=== PATIENT | female | born 1935 | race Caucasian/White ===

== ENCOUNTER 2023-02-01 13:20 | Inpatient (IN) ==
--- NOTE | 2023-02-01 13:56 | ED Triage Note ---
Date of Service February 01, 2023 History of Present Illness This patient was briefly evaluated while in triage. An abbreviated physical exam was performed. This patient is a 87-year-old Female who presents to the ED for evaluation of. She was recently on antibiotics for a UTI and developed a yeast infection according to urgent care. She was given antifungals and the rash has worsened significantly. Physical Exam VITALS: Vitals are noted on the nurse's note and reviewed by myself. GENERAL: This is an 87-year-old female, sitting in a wheelchair. SKIN: There is an erythematous, maculopapular rash to bilateral hands and forearms. NEURO: Patient was alert and oriented to person place and time. Initial orders for labs and / or imaging were placed and patient was placed in the waiting area until a bed is available. Please see further documentation for the full ED course. MDM / Impression Impression Impression: Candidiasis, disseminated, KEV (acute kidney injury)
[2023-02-01 14:40] LABS: Basophils # (auto) 0.02 K/uL (0.00-0.20); Basophils % (auto) 0.1 %; Eosinophils # (auto) 1.09 K/uL (0.00-0.50); Eosinophils % (auto) 7.2 %; Hematocrit (blood only) 43.9 % (37.0-47.0); Hemoglobin 14.6 g/dl (12.0-16.0); Immature Granulocytes # (auto) 0.07 K/uL (0.01-0.20); Immature Granulocytes % (auto) 0.5 %; Lymphocytes # (auto) 1.35 K/uL (1.20-3.40); Lymphocytes % (auto) 8.9 %; Mean Corpuscular Hemoglobin 31.2 pg (25.0-34.0); Mean Corpuscular Hgb Conc 33.3 g/dL (32.0-36.0); Mean Corpuscular Volume 93.8 fL (80.0-100.0); Mean Platelet Volume 8.9 fL (9.4-12.4); Monocytes # (auto) 0.53 K/uL (0.11-0.59); Monocytes % (auto) 3.5 %; Neutrophils # (auto) 12.15 K/uL (1.40-6.50); Neutrophils % (auto) 79.8 %; Platelet Count 258 K/uL (130-400); RDW Coefficient of Variation 13.2 % (11.5-14.5); RDW Standard Deviation 45.2 fL (36.4-46.3); Red Blood Count 4.68 M/uL (4.20-5.40); White Blood Count 15.21 K/ul (4.8-10.8)
[2023-02-01 14:57] LABS: Alanine Aminotransferase 8 U/L (7-52); Albumin Globulin Ratio 1.5 (0.9-2); Albumin Level 4.4 gm/dl (3.4-5.0); Alkaline Phosphatase 95 U/L (34-104); Anion Gap 8 (3-11); Aspartate Aminotransferase 9 U/L (13-39); BUN Creatinine Ratio 28.4 (10-20); Bilirubin,Total 0.4 mg/dl (0.2-1.0); Blood Urea Nitrogen 38 mg/dl (6-23); Calcium 9.8 mg/dl (8.6-10.3); Carbon Dioxide 24 mmol/L (21-32); Chloride 110 mmol/L (98-107); Est GFR (African American) 41.8 ml/min; Glucose 98 mg/dl (70-99(Fasting)); Potassium 4.2 mmol/L (3.5-5.1); Sodium 142 mmol/L (136-145); Total Protein 7.4 gm/dl (6.0-8.3)
--- NOTE | 2023-02-01 16:03 | XRay Report ---
SINGLE VIEW CHEST CLINICAL HISTORY: Dyspnea. FINDINGS: An AP, portable, upright chest radiograph is obtained. No prior studies are available for c omparison at the time of dictation. The cardiomediastinal silhouette is top normal for projection. Th e lungs and pleural spaces are clear. No pneumothorax is seen. The skeletal structures are osteopenic . There is chronic posttraumatic deformity of the distal right clavicle. IMPRESSION: No active disease in the chest. ACT 112: Negative or not required by law. Electronically signed by: Darion Menard M.D. 02/01/2023 4:02 PM
[2023-02-01 16:15] LABS: Appearance Urine Cloudy (Clear); Bacteria Urine Automated Negative (Negative); Bilirubin Urine Negative (Negative); Blood Urine Negative (Negative); Color Urine Dark Yellow; Epithelial Cell Urine Auto >30 /lpf (0-5); Glucose Urine UA Negative (Negative); Ketones Urine Trace (Negative); Leukocyte Esterase Urine Trace (Negative); Nitrite Urine Negative (Negative); Protein Urine Negative (Negative); Specific Gravity Urine 1.035 (1.000-1.030); Urobilinogen Urine Negative (Negative)
[2023-02-01 16:38] LABS: RBC Urine Automated 0-4 /hpf (0-4)
[2023-02-01] MEDS ORDERED: diphenhydrAMINE 50 MG/ML VIAL IV STA (17:31)
[2023-02-01] MEDS ORDERED: TRIAMCIN EXT STA (17:33)
[2023-02-01] MEDS ORDERED: NYSTATIN EXT STA (17:33)
--- NOTE | 2023-02-01 18:15 | Emergency Department Note ---
Impression & Plan Candidiasis, disseminated, KEV (acute kidney injury) ED Provider Note HISTORY OF PRESENT ILLNESS: Patient is an 87-year-old female presenting with a diffuse rash. Patient was diagnosed with urinary tract infection 10 days ago and started on Macrobid. She completed her course of antibiotic, but states that a few days ago she started having erythema and itchiness in her vaginal and vulvar region. Her primary care provider diagnosed her with a yeast infection and started her on nystatin cream without any relief. Her rash has spread to the entirety of her vulva and gluteal fold region. She also has erythematous satellite lesions on her bilateral forearms and in her abdominal crease. She reports the entirety of her body is very itchy. She has been using the nystatin cream without any relief in symptoms. Denies any fevers. Denies any chest pain or shortness of breath. Denies any abdominal pain. Other than Macrobid she has not had any medication changes. Denies being immunocompromise. ROS: as above PHYSICAL EXAM: Constitutional: Patient appears in no acute distress. HENT: Head: Normocephalic and atraumatic. Eyes: EOMI, PERRL Mouth/Throat: Mucous membranes moist. Neck: Trachea midline. Neck supple. Cardiovascular: RRR, No murmurs, rubs or gallops. Intact distal pulses. Pulmonary/Chest: No respiratory distress. Breath sounds clear and equal bilaterally. No wheezes or rales. Abdominal: Abdomen soft, no tenderness, rebound or guarding. Musculoskeletal: No edema, tenderness or deformity noted. Skin: Warm and dry. Patient has diffuse erythema with satellite lesions in her vaginal and vulvar region, gluteal crease and in her inguinal folds. She also has lesions across her abdominal fold. Nikolsky negative. Psychiatric: Appropriate mood and affect for situation. Neurological: Alert and keenly responsive. CN II-XII grossly intact, moving all extremities equally and fully. MDM: - Vitals signs stable. - History obtained via patient. Patient presents with diffuse rash. Patient was started on Macrobid for a UTI 10 days ago. She reports she completed her course of antibiotics but over the last few days has developed erythema and itchiness of her perineal region. She has also developed a rash on her bilateral forearms and abdominal folds. Denies any fevers. Reports the rash is very itchy. - Chronic conditions affecting care: Parkinson's disease - Differential diagnoses include, but are not limited to: Nicholas Ricardo syndrome; cellulitis; toxic shock syndrome; Keron dermatitis - Order placed for continuous cardiac monitoring. At this time, monitor showed rate of 90 bpm with normal sinus rhythm, per my interpretation. - External medical records reviewed. - Laboratory workup interpreted by myself showed leukocytosis (WBC 15.21) with left shift; stable electrolytes; KEV (Cr 1.34) - CXR negative for pneumonia, per my interpretation - UA negative for infection - Patient's keron is diffuse throughout her perineal region and abdominal folds. Nystatin powder applied. Given 50 mg IV Benadryl for itchiness. Given 1L NS in ER for hydration. - Discussion was had with social media strategist about patient's case and need for admission - Hospitalist consulted for admission - [facility] ASSESSMENT AND PLAN: Diagnosis: Candidiasis dermatitis; KEV Plan: Admit Past Med/Surg History Medical History No pertinent family history Parkinson disease Surgical History No pertinent past surgical history Social History Smoking Status: Never smoker Preferred Language: Kittitian Feels Safe at Home: Yes Allergies Allergies Allergy/AdvReac Type Severity Reaction Status Date / Time No Known Allergies Allergy Unverified 02/01/23 17:43 Home Meds Home Medications Medication Instructions Recorded Confirmed Ultimate Bone Support 1 tab PO QAM 02/01/23 02/01/23 acetaminophen 500 mg tablet 1,000 mg PO Q12H 02/01/23 02/01/23 amantadine HCl 100 mg capsule 100 mg PO BID 02/01/23 02/01/23 artificial tears solution eye drops 1 drp ophthalmic (eye) TID 02/01/23 02/01/23 carbidopa 25 mg-levodopa 100 mg 2 tab PO TID 02/01/23 02/01/23 tablet carbidopa ER 25 mg-levodopa 100 mg 1 tab PO HS 02/01/23 02/01/23 tablet,extended release celecoxib 200 mg capsule 200 mg PO QAM 02/01/23 02/01/23 cholecalciferol (vitamin D3) 25 50 mcg PO QAM 02/01/23 02/01/23 mcg (1,000 unit) capsule (Vitamin D3) clotrimazole 1 % topical cream 1 applic topical DAILY PRN Itching 02/01/23 02/01/23 cranberry concentrate-ascorbic 1 cap PO QAM 02/01/23 02/01/23 acid 140 mg-100 mg capsule (Cranberry Plus Vitamin C) diclofenac sodium 1 % topical gel 2 g topical QID PRN Moderate Pain 02/01/23 02/01/23 (Scale Score 5-6) fluconazole 150 mg tablet 150 mg PO Q72H 02/01/23 02/01/23 fluticasone propionate 50 2 spray intranasal HS 02/01/23 02/01/23 mcg/actuation nasal spray,suspension levothyroxine 75 mcg tablet 75 mcg PO QAM 02/01/23 02/01/23 neomycin-bacitracn Zn-polymyx 3.5 See Rx Instructions .Route .COMPLEX 02/01/23 02/01/23 mg-400 unit-5,000 unit/gram top oint (Neosporin ([id number])) nitrofurantoin 100 mg PO BID 02/01/23 02/01/23 monohydrate/macrocrystals 100 mg capsule nystatin-triamcinolone topical 1 applic topical TID 02/01/23 02/01/23 cream phenazopyridine 100 mg tablet 100 mg PO Q8H PRN Burning with 02/01/23 02/01/23 urination polyethylene glycol 3350 17 15 g PO DAILY 02/01/23 02/01/23 gram/dose oral powder sulfacetamide sodium 10 % eye drops 1 drp ophthalmic (eye) HS 02/01/23 02/01/23 trazodone 50 mg tablet 75 mg PO HS 02/01/23 02/01/23 vibegron 75 mg tablet (Gemtesa) 75 mg PO HS 02/01/23 02/01/23 Results & Data (ED) Vital Signs Vital Signs - 24 hr 02/01/23 13:52 02/01/23 17:15 02/01/23 17:31 Temperature 36.2 C L Temperature Source Temporal Artery Scan Pulse Rate 90 Respiratory Rate 18 Respiratory Effort / Characteristics Non-Labored Spontaneous Spontaneous Respiratory Depth Normal Deep Respiratory Pattern Regular Regular Blood Pressure 140/59 L Blood Pressure Mean 86 Blood Pressure Position Sitting Pulse Oximetry 99 97 Oxygen Delivery Method Room Air Room Air Room Air Sepsis Recent Fever Within 48 Hours No Sepsis New/Unexplained Change in Mental Status N/A Sepsis Action Taken by Nursing No Action Required Laboratory Data 02/01/23 14:18 02/01/23 14:18 Lab Results 02/01/23 02/01/23 02/01/23 Range/Units 14:18 14:18 Unknown WBC 15.21 H (4.8-10.8) K/ul RBC 4.68 (4.20-5.40) M/uL Hgb 14.6 (12.0-16.0) g/dl Hct 43.9 (37.0-47.0) % MCV 93.8 (80.0-100.0) fL MCH 31.2 (25.0-34.0) pg MCHC 33.3 (32.0-36.0) g/dL RDW Std Deviation 45.2 (36.4-46.3) fL RDW Coeff of Wilber 13.2 (11.5-14.5) % Plt Count 258 (130-400) K/uL MPV 8.9 L (9.4-12.4) fL Immature Gran % (Auto) 0.5 % Neut % (Auto) 79.8 % Lymph % (Auto) 8.9 % Mcclain % (Auto) 3.5 % Eos % (Auto) 7.2 % Baso % (Auto) 0.1 % Neut # (Auto) 12.15 H (1.40-6.50) K/uL Lymph # (Auto) 1.35 (1.20-3.40) K/uL [place] # (Auto) 0.53 (0.11-0.59) K/uL Eos # (Auto) 1.09 H (0.00-0.50) K/uL Baso # (Auto) 0.02 (0.00-0.20) K/uL Immature Gran # (Auto) 0.07 (0.01-0.20) K/uL Sodium 142 (136-145) mmol/L Potassium 4.2 (3.5-5.1) mmol/L Chloride 110 H (98-107) mmol/L Carbon Dioxide 24 (21-32) mmol/L Anion Gap 8 (3-11) BUN 38 H (6-23) mg/dl Creatinine 1.34 H (0.6-1.2) mg/dl Est Cr Clr Drug Dosing Not Reportable Est GFR ( Amer) 41.8 ml/min Est GFR (Non-Af Amer) 36.0 ml/min BUN/Creatinine Ratio 28.4 H (10-20) Glucose 98 (70-99(Fasting)) mg/dl Calcium 9.8 (8.6-10.3) mg/dl Total Bilirubin 0.4 (0.2-1.0) mg/dl AST 9 L (13-39) U/L ALT 8 (7-52) U/L Alkaline Phosphatase 95 (34-104) U/L Total Protein 7.4 (6.0-8.3) gm/dl Albumin 4.4 (3.4-5.0) gm/dl Globulin 3.0 (2.5-4.0) gm/dl Albumin/Globulin Ratio 1.5 (0.9-2) Urine Color Dark Yellow Urine Appearance Cloudy A (Clear) Urine pH 5.0 (4.5-7.5) Ur Specific [place] 1.035 H (1.000-1.030) Urine Protein Negative (Negative) Urine Glucose (UA) Negative (Negative) Urine Ketones Trace H (Negative) Urine Blood Negative (Negative) Urine Nitrite Negative (Negative) Urine Bilirubin Negative (Negative) Urine Urobilinogen Negative (Negative) Ur Leukocyte Esterase Trace H (Negative) Urine WBC (Auto) 10-30 H (0-5) /hpf Urine RBC (Auto) 0-4 (0-4) /hpf U Hyaline Cast (Auto) 1-5 (0-5) /lpf U Epithel Cells (Auto) >30 H (0-5) /lpf Urine Bacteria (Auto) Negative (Negative) Urine Yeast Not Reportable Administered Medications Sodium Chloride (Nss) 1,000 mls @ 999 mls/hr IV .Q1H1M ONE Stop: 02/01/23 20:05 Last Admin: 02/01/23 19:16 Dose: 999 mls/hr Documented By: NRB Discontinued Medications Diphenhydramine HCl (Diphenhydramine 50 Mg/Ml Vial) 50 mg IV NOW STA Stop: 02/01/23 17:32 Last Admin: 02/01/23 17:53 Dose: 50 mg Documented By: ANASTACIO Nystatin (Nystatin Powder 15gm Btl) 1 appln EXT ONE ONE Stop: 02/01/23 18:46 Last Admin: 02/01/23 18:59 Dose: 1 appln Documented By: ANASTACIO Nystatin/Triamcinolone Acetonide (Nystatin/Triamcin Cr 60 Gm Tube) 1 appln EXT NOW STA Stop: 02/01/23 17:34 Last Admin: 02/01/23 18:59 Dose: Not Given Documented By: ANASTACIO Imaging Data Radiologist's Impression: Chest X-Ray 02/01/23 13:57 SINGLE VIEW CHEST CLINICAL HISTORY: Dyspnea. FINDINGS: An AP, portable, upright chest radiograph is obtained. No prior studies are available for comparison at the time of dictation. The cardiomediastinal silhouette is top normal for projection. The lungs and pleural spaces are clear. No pneumothorax is seen. The skeletal structures are osteope carmen. There is chronic posttraumatic deformity of the distal right clavicle. IMPRESSION: No active disease in the chest. ACT 112: Negative or not required by law. Electronically signed by: Darion Menard M.D. 02/01/2023 4:02 PM Discharge Plan Visit Data Chief Complaint: Shortness of Breath/Dyspnea Stated Complaint: SOB UTI; YEAST INFECTION; RASH ED Provider: Katy Temple Discharge Problem: Candidiasis, disseminated, KEV (acute kidney injury) Forms Stand Alone Forms: [facility] Prescriptions Prescriptions: No Action celecoxib 200 mg capsule 200 mg PO QAM Neosporin ([id number]) 3.5mg-400 unit- 5,000 unit/gram Ointment See Rx Instructions .ROUTE .COMPLEX Rx Instructions: Apply to nail bed of left great toe twice daily after foot soak and cover with bandaid. carbidopa-levodopa 25-100 mg tablet extended release 1 tab PO HS trazodone 50 mg tablet 75 mg PO HS fluconazole 150 mg tablet 150 mg PO Q72H Rx Instructions: Start Date 01/30/23 - End Date 02/09/23 artificial tears solution Drops 1 drp OPHTHALMIC (EYE) TID Cranberry Plus Vitamin C 140-100 mg Capsule 1 cap PO QAM amantadine HCl 100 mg capsule 100 mg PO BID acetaminophen [Tylenol Ex Str Rapid Release] 500 mg Tablet 1,000 mg PO Q12H levothyroxine 75 mcg tablet 75 mcg PO QAM sulfacetamide sodium 10 % drops 1 drp ophthalmic (eye) HS phenazopyridine 100 mg Tablet 100 mg PO Q8H PRN (Reason: Burning with urination) polyethylene glycol 3350 17 gram/dose Powder 15 g PO DAILY Rx Instructions: -Family will provide- carbidopa-levodopa 25-100 mg tablet 2 tab PO TID fluticasone propionate 50 mcg/actuation spray,suspension 2 spray INTRANASAL HS clotrimazole [Lotrimin] 1 % Cream 1 applic TOPICAL DAILY PRN (Reason: Itching) cholecalciferol (vitamin D3) [Vitamin D3] 25 mcg (1,000 unit) Capsule 50 mcg PO QAM Mycolog II Cream 1 applic TOPICAL TID Rx Instructions: Apply to affected area on wrists and buttocks. Start Date 01/30/23 - End Date 02/14/23 nitrofurantoin monohyd/m-cryst 100 mg capsule 100 mg PO BID Rx Instructions: Start Date 01/24/23 - End Date 02/03/23 diclofenac sodium [Voltaren] 1 % Gel 2 g TOPICAL QID PRN (Reason: Moderate Pain (Scale Score 5-6)) Gemtesa 75 mg tablet 75 mg PO HS Ultimate Bone Support 1 tab PO QAM Referrals Referrals: Cristine michelDewitt [Non-Staff] -
[2023-02-01] MEDS ORDERED: NYSTATIN/TRIAMCIN CR 15 GM TUBE EXT SCH (18:30)
[2023-02-01] MEDS ORDERED: NYSTATIN POWDER 15GM BTL EXT ONE (18:45)
[2023-02-01] MEDS ORDERED: SODIUM CHLORIDE 0.9% 1,000 ML IV ONE (19:05)
[2023-02-01] MEDS ORDERED: CARBIDOPA/LEVODOPA 25/100MG EXT REL TAB PO STA (20:57)
--- NOTE | 2023-02-01 21:06 | History & Physical Report ---
Date of Service February 01, 2023 Assessment & Plan (1) Rash and nonspecific skin eruption: (2) KEV (acute kidney injury): (3) Parkinson disease: Plan: This is an 87-year-old female who has a significant past medical history of Parkinson's disease, hypothyroidism, lumbar spinal stenosis, osteoarthritis, urinary incontinence who presents to ED secondary to rash x2 days. 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 and order additional fluids as needed Parkinson's disease Chronic, stable Continue amantadine and carbidopa levodopa Hypothyroidism Chronic, stable Continue levothyroxine DVT ppx: SQ Lovenox Dispo: pt resides at [facility] DNR/DNI Daughter at bedside very involved in pt care and POA, if not at bedside would like updates. Anderson [phone] Pt was seen and examined in collaboration with Dr. Jorge, please see his addendum for further details regarding assessment and plan. History of Present Illness Chief Complaint: Rash x 2 days. Primary Care Provider: NO PCP This is an 87-year-old female who has a significant past medical history of Parkinson's disease, hypothyroidism, lumbar spinal stenosis, osteoarthritis, urinary incontinence who presents to ED secondary to rash x2 days. Patient's daughter is at bedside who also helps elicit history. She currently resides at [facility] which is a personal care facility. At baseline she ambulates with a walker. Of significance patient recently diagnosed with a urinary tract infection and started on oral Macrobid. Macrobid was started on 01/24. 2 days ago she was noted to have a rash in her vaginal area and staff felt like this was a yeast infection. She was started on nystatin cream as well as oral f luconazole. So far she has had 2 doses of oral fluconazole. Her rash has been getting significantly worse extending to the buttock region, proximal abdomen and bilateral wrist. Rash is very painful as well as very itchy. She is never had anything like this before. She does have frequent urinary tract infections but is never been treated with Macrobid before. Typically she is treated with Keflex. Patient also admits to chronic shortness of breath that is been present for the last 6 months. This occurs with exertion especially physical therapy. Overall she is a poor appetite at baseline and per daughter she is a very poor, "water drinker." She drinks a lot of sugary beverages but her oral intake at baseline is minimal. Allergies Allergy/AdvReac Type Severity Reaction Status Date / Time nitrofurantoin Allergy Intermediate Rash Verified 02/01/23 22:46 [From Macrodantin] Home Medications Medication Instructions Recorded Confirmed Type Ultimate Bone Support 1 tab PO QAM 02/01/23 02/01/23 History acetaminophen 500 mg tablet 1,000 mg PO Q12H 02/01/23 02/01/23 History amantadine HCl 100 mg capsule 100 mg PO BID 02/01/23 02/01/23 History carbidopa 25 mg-levodopa 100 mg 2 tab PO TID 02/01/23 02/01/23 History tablet carbidopa ER 25 mg-levodopa 100 mg 1 tab PO HS 02/01/23 02/01/23 History tablet,extended release celecoxib 200 mg capsule 200 mg PO QAM 02/01/23 02/01/23 History cholecalciferol (vitamin D3) 25 50 mcg PO QAM 02/01/23 02/01/23 History mcg (1,000 unit) capsule (Vitamin D3) cranberry concentrate-ascorbic 1 cap PO QAM 02/01/23 02/01/23 History acid 140 mg-100 mg capsule (Cranberry Plus Vitamin C) diclofenac sodium 1 % topical gel 2 g topical QID PRN Moderate Pain 02/01/23 02/01/23 History (Scale Score 5-6) fluconazole 150 mg tablet 150 mg PO Q72H 02/01/23 02/01/23 History fluticasone propionate 50 2 spray intranasal HS 02/01/23 02/01/23 History mcg/actuation nasal spray,suspension levothyroxine 75 mcg tablet 75 mcg PO QAM 02/01/23 02/01/23 History nitrofurantoin 100 mg PO BID 02/01/23 02/01/23 History monohydrate/macrocrystals 100 mg capsule nystatin-triamcinolone topical 1 applic topical TID 02/01/23 02/01/23 History cream polyethylene glycol 3350 17 15 g PO DAILY 02/01/23 02/01/23 History gram/dose oral powder sulfacetamide sodium 10 % eye drops 1 drp ophthalmic (eye) BID 02/01/23 02/01/23 History trazodone 50 mg tablet 75 mg PO HS 02/01/23 02/01/23 History vibegron 75 mg tablet (Gemtesa) 75 mg PO HS 02/01/23 02/01/23 History Past Med/Surg History Medical History (Updated 02/01/23 @ 21:17 by Adriana Bae PA-C) Hypothyroidism No pertinent family history Parkinson disease Urinary bladder incontinence UTI (urinary tract infection) Surgical History (Updated 02/01/23 @ 20:19 by Adriana Bae PA-C) Hx of appendectomy Hx of cholecystectomy Family History (Updated 02/01/23 @ 21:09 by Adriana Bae PA-C) Other Family history non-contributory Social History (Updated 02/01/23 @ 20:20 by Adriana Bae PA-C) Smoking Status: Never smoker Hx Alcohol Use: No Hx Substance Use: No Preferred Language: Croatian Communication Ability: Effective Melter Operator Required: No Beliefs That Will Affect Care: None Current Living Situation: Personal Care Facility Feels Safe at Home: Yes Safety Concerns: Feels Safe At This Time Assistive Devices: Wheelchair Review of Systems Review of Systems: All systems reviewed & are unremarkable except as noted in HPI & below Physical Exam Physical Exam: Constitutional: Elderly female with masked facies, parkinsonian features, WD/WN, vitals as above, NAD, sitting up in bed, pleasant, soft-spoken Head: Normocephalic, Atraumatic Eyes: PERRL, conjunctivae normal, anicteric sclerae ENMT: external ear and nose normal, oropharynx normal dry membranes Neck: trachea midline, no thyromegaly normal visual inspection Respiratory: normal respiratory effort, lungs clear to auscultation, no wheeze, rales, rhonchi. Normal insp/exp effort, no accessory muscle use Cardiovascular: RRR, no murmur, no edema Vessels: no JVD or carotid bruit Chest: normal inspection of chest Abdomen: normal bowel sounds, soft, nontender, no hepatosplenomegaly Musculoskeletal: no cyanosis or clubbing, extremities motor strength 5/5 Skin: Positive rash to vulvovaginal area, gluteal fold, buttocks and sacrum, erythematous maculopapular rash to bilateral wrists, warm and dry normal turgor Neurologic: PERRL, EOMI, accommodation nl, no face palsy, no dysarthria CN's II-XI intact bilaterally and moves all extremities Psychiatric: A+Ox3, euthymic affect Lymphatic: no cervical or axillary lymphadenopathy : Diffuse erythematous rash in her vulvovaginal region, inguinal folds extending to her sacral and gluteal crease with outlying satellite lesions. The diffuse erythematous rash also extends up the abdomen to the umbilicus with satellite lesions. Results & Data Results & Data Vital Signs (Past 12 Hours) Vital Signs Temp Pulse Pulse Resp BP BP Pulse Ox 02/01/23 20:03 95 H 16 179/81 H 98 02/01/23 17:31 97 02/01/23 17:15 02/01/23 13:52 36.2 C L 90 18 140/59 L 99 O2 Del Method 02/01/23 20:03 Room Air 02/01/23 17:31 Room Air 02/01/23 17:15 Room Air 02/01/23 13:52 Room Air Diagnostic Findings Chest X-Ray 02/01/23 13:57 SINGLE VIEW CHEST CLINICAL HISTORY: Dyspnea. FINDINGS: An AP, portable, upright chest radiograph is obtained. No prior studies are available for comparison at the time of dictation. The cardiomediastinal silhouette is top normal for projection. The lungs and pleural spaces are clear. No pneumothorax is seen. The skeletal structures are osteopenic. There is chronic posttraumatic deformity of the distal right clavicle. IMPRESSION: No active disease in the chest. ACT 112: Negative or not required by law. Electronically signed by: Darion Menard M.D. 02/01/2023 4:02 PM Medications Administered Medication List Discontinued Medications Diphenhydramine HCl (Diphenhydramine 50 Mg/Ml Vial) 50 mg IV NOW STA Stop: 02/01/23 17:32 Last Admin: 02/01/23 17:53 Dose: 50 mg Documented By: ANASTACIO Sodium Chloride (Nss) 1,000 mls @ 999 mls/hr IV .Q1H1M ONE Stop: 02/01/23 20:05 Last Admin: 02/01/23 19:16 Dose: 999 mls/hr Documented By: ANASTACIO Nystatin (Nystatin Powder 15gm Btl) 1 appln EXT ONE ONE Stop: 02/01/23 18:46 Last Admin: 02/01/23 18:59 Dose: 1 appln Documented By: ANASTACIO Nystatin/Triamcinolone Acetonide (Nystatin/Triamcin Cr 60 Gm Tube) 1 appln EXT NOW STA Stop: 02/01/23 17:34 Last Admin: 02/01/23 18:59 Dose: Not Given Documented By: NRElsa COVID-19 Results Results COVID-19 Adm Lab Results: RBC 4.68 M/uL (4.20-5.40) 02/01/23 WBC 15.21 K/ul (4.8-10.8) H 02/01/23 Hgb 14.6 g/dl (12.0-16.0) 02/01/23 Hct 43.9 % (37.0-47.0) 02/01/23 Plt Count 258 K/uL (130-400) 02/01/23 Neutrophils (%) (Auto) 79.8 % 02/01/23 Lymphocytes (%) (Auto) 8.9 % 02/01/23 Monocytes # (Auto) 0.53 K/uL (0.11-0.59) 02/01/23 Eosinophils # (Auto) 1.09 K/uL (0.00-0.50) H 02/01/23 Immature Granulocyte % (Auto) 0.5 % 02/01/23 Neutrophils # (Auto) 12.15 K/uL (1.40-6.50) H 02/01/23 Lymphocytes # (Auto) 1.35 K/uL (1.20-3.40) 02/01/23 Monocytes # (Auto) 0.53 K/uL (0.11-0.59) 02/01/23 Eosinophils # (Auto) 1.09 K/uL (0.00-0.50) H 02/01/23 Basophils # (Auto) 0.02 K/uL (0.00-0.20) 02/01/23 Immature Granulocyte # (Auto) 0.07 K/uL (0.01-0.20) 3 Na 142 mmol/L (136-145) 02/01/23 K 4.2 mmol/L (3.5-5.1) 02/01/23 Cl 110 mmol/L (98-107) H 02/01/23 CO2 24 mmol/L (21-32) 02/01/23 Anion Gap 8 (3-11) 02/01/23 BUN 38 mg/dl (6-23) H 02/01/23 Creatinine 1.34 mg/dl (0.6-1.2) H 02/01/23 BUN/Creatinine Ratio 28.4 (10-20) H 02/01/23 Glucose Level 98 mg/dl (70-99(Fasting)) 02/01/23 Ca 9.8 mg/dl (8.6-10.3) 02/01/23 Total Bilirubin 0.4 mg/dl (0.2-1.0) 02/01/23 AST/SGOT 9 U/L (13-39) L 02/01/23 ALT/SGPT 8 U/L (7-52) 02/01/23 Alkaline Phosphatase 95 U/L (34-104) 02/01/23 Total Protein 7.4 gm/dl (6.0-8.3) 02/01/23 Albumin 4.4 gm/dl (3.4-5.0) 02/01/23 Globulin 3.0 gm/dl (2.5-4.0) 02/01/23 Albumin/Globulin Ratio 1.5 (0.9-2) 02/01/23 CRP 2.22 mg/dl (0-0.5) H 02/01/23 Procalcitonin 0.13 ng/ml (0-0.5) 02/01/23 D-Dimer 5110 ug/L FEU (0-500) H* 02/01/23 PTT 25.9 Seconds (21.0-31.0) 02/01/23 Chest X-Ray 02/01/23 Code Status & VTE Plan Code Status DNR/DNI VTE Prophylaxis Plan VTE Prophylaxis will be ordered: Yes Supervising Physician Co-Signing Physician Notes IM ATTENDING : Patient seen and examined. History obtained from patient family, and records. Preceding documentation by Ms. Adriana Bae PA-C reviewed. In addition, patient complaining of exertional SOB and abdominal discomfort since illness. Highest SBP of 170s documented at the ER. FINAL ASSESSMENT AND PLAN as follows : SOB rule out PE Situational hypertension secondary to illness possible chronic BP elevation given borderline cardiomegaly on CXR Severe sepsis SIRS plus ARF secondary to complicated UTI Rule out obstructive uropathy given abdominal pain complaints. 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 Heparin subcu DNR Patient daughter requesting updates from providers. Anderson Albert, contact #[phone]. Text document was generated using rVue voice recognition software. It may contain grammatical or spelling errors. Kindly contact undersigned for clarification of any documentation item in question.
[2023-02-01 21:21] LABS: C Reactive Protein 2.22 mg/dl (0-0.5)
[2023-02-01] MEDS ORDERED: Patient's HEIGHT &/or WEIGHT Needed SCH (21:30)
[2023-02-01] MEDS ORDERED: SODIUM CHLORIDE 0.45 % 1,000 ML IV ONE (21:32)
[2023-02-01] MEDS ORDERED: cloNIDine HCL 0.1 MG TAB PO ONE (21:32)
[2023-02-01 21:53] LABS: Magnesium 2.2 mg/dl (1.7-2.4)
[2023-02-01] MEDS ORDERED: LORATADINE 10 MG TAB PO ONE (22:44)
[2023-02-01] MEDS ORDERED: PROMETHAZINE HCL 6.25 MG in SODIUM CHLORIDE 0.9% 50 ML IV PRN (22:47)
[2023-02-01] MEDS ORDERED: traMADol HCL 50 MG TABLET PO PRN (22:47)
[2023-02-01] MEDS ORDERED: ACETAMINOPHEN 325 MG TAB PO PRN (22:47)
[2023-02-01] MEDS ORDERED: cefTRIAXone SODIUM 2,000 MG/70 ML BAG IV STA (23:00)
[2023-02-02 00:29] LABS: Partial Thromboplastin Ratio 0.9; Partial Thromboplastin Time 25.9 Seconds (21.0-31.0)
[2023-02-02] MEDS ORDERED: ACETAMINOPHEN 325 MG TAB PO PRN (00:30)
[2023-02-02] MEDS ORDERED: SODIUM CHLORIDE 0.9% 1,000 ML IV SCH (00:30)
[2023-02-02] MEDS ORDERED: MAGNESIUM HYDROXIDE SUSP 30 ML UDC PO PRN (00:30)
[2023-02-02] MEDS ORDERED: ALUMINUM/MAGNESIUM SUSP 30 ML UDC PO PRN (00:30)
[2023-02-02] MEDS ORDERED: ONDANSETRON INJ 2 MG/ML 2 ML VIAL IV PRN (00:30)
[2023-02-02] MEDS ORDERED: POLYETHYLENE (MIRALAX) 17 GM PACK PO PRN (00:30)
[2023-02-02 00:38] LABS: D Dimer 5110 ug/L FEU (0-500)
[2023-02-02] MEDS ORDERED: predniSONE 20 MG TAB PO STA (00:38)
[2023-02-02] MEDS ORDERED: OPTIRAY 320 125ml IV ONE (01:22)
[2023-02-02] MEDS: AMANTADINE HCL 100 MG CAPSULE PO SCH ×3 (01:46→20:02)
[2023-02-02] MEDS: NYSTATIN CR 15 GM TUBE EXT SCH ×2 (02:05→08:56)
[2023-02-02] MEDS: LEVOTHYROXINE SODIUM 75 MCG TABLET PO SCH (05:27)
[2023-02-02] MEDS: HEPARIN SOD 5,000 UNIT/0.5 ML VIAL SQ SCH ×2 (05:27→14:21)
[2023-02-02] MEDS: ACETAMINOPHEN 500 MG TAB PO SCH ×2 (05:27→18:13)
[2023-02-02] MEDS: diphenhydrAMINE 2%/ZINC 0.1% CREAM 28.4GM TUBE EXT PRN ×2 (05:47→08:51)
[2023-02-02] MEDS ORDERED: ENOXAPARIN INJ 40 MG/0.4 ML SYR SQ SCH (06:00)
--- NOTE | 2023-02-02 06:47 | CT Scan Report ---
CT abd pelvis IV con only CLINICAL HISTORY: abd pain TECHNIQUE: Helical axial images of the abdomen and pelvis were obtained and displayed. Automated dose lowering techniques and/or adjustment according to patient size were utilized for this exam. This e xam was performed with intravenous contrast. CT DOSE: 2160.87 mGy.cm COMPARISON: None available at the time of this dictation. FINDINGS: Lower chest: Bibasilar atelectasis versus scarring is seen. Liver: Unremarkable. No focal lesions are seen. Gallbladder and biliary tree: Patient is status post cholecystectomy. No intra- or extrahepatic bilia ry ductal dilation. Pancreas: Unremarkable, no focal lesions. Spleen: Unremarkable. Adrenals: Unremarkable. Kidneys and ureters: Multiple cysts measuring up to 41 mm. Bladder: Unremarkable. Reproductive organs: Prominent left adnexal mass measures 43 x 30 mm, likely a left ovary. Bowel: A hiatal hernia is seen. Lymph nodes Retroperitoneal: Unremarkable. Pelvic: Subcentimeter lymph nodes are noted. Mesenteric: Unremarkable. Peritoneum: Normal. Vessels: Atherosclerotic calcifications are seen. IVC filter is noted. Abdominal wall: A fat-containing umbilical hernia is seen. Bones: Degenerative changes in the visualized spine. IMPRESSION: 1. Prominent left adnexal mass may represent a prominent ovary. If there is clinical concern, transv aginal ultrasound can be performed. 2. Otherwise no acute abnormalities are seen. 3. Renal cysts. No evidence of prominent cystitis or pyelonephritis in this patient with UTI. ACT 112: Negative or not required by law. Electronically signed by: eSrge Alston M.D. 02/02/2023 6:45 AM
--- NOTE | 2023-02-02 06:49 | CT Scan Report ---
CT angio chest PE protocol CLINICAL HISTORY: sob TECHNIQUE: Multidetector row helical CT of the chest was performed with angiographic protocol. Marrero l and sagittal reformations were obtained. Coronal and sagittal MIPS were obtained from the axial tova a set and were submitted for review. Automated dose lowering techniques and/or adjustment according to patient size were utilized for this exam. Comparison: Comparison is made to chest radiograph 02/01/2023 FINDINGS: Lungs and pleura: Atelectasis versus scarring is seen in the dependent portions of the lungs. There i s a 4 mm nodule in the right upper lobe (series 4 image 124). Heart and pericardium: Heart size is normal. No pericardial effusion. Vessels: No evidence of pulmonary embolism. Mediastinum and marcelo: Unremarkable. Chest wall and lower neck: Unremarkable. Abdomen: For findings below the diaphragm, please refer to CT of the abdomen dated the same. A hiatal hernia is seen. Bones: Degenerative changes in the thoracic spine. IMPRESSION: 1. No acute abnormality and in particular no evidence of pulmonary embolus. 2. Tiny pulmonary nodule as above ACT 112: Negative or not required by law. Electronically signed by: Serge Alston M.D. 02/02/2023 6:48 AM
[2023-02-02 07:43] LABS: Basophils # (auto) 0.02 K/uL (0.00-0.20); Basophils % (auto) 0.2 %; Eosinophils # (auto) 0.59 K/uL (0.00-0.50); Eosinophils % (auto) 6.1 %; Hematocrit (blood only) 39.1 % (37.0-47.0); Hemoglobin 13.1 g/dl (12.0-16.0); Immature Granulocytes # (auto) 0.08 K/uL (0.01-0.20); Immature Granulocytes % (auto) 0.8 %; Lymphocytes # (auto) 0.99 K/uL (1.20-3.40); Lymphocytes % (auto) 10.2 %; Mean Corpuscular Hemoglobin 31.5 pg (25.0-34.0); Mean Corpuscular Hgb Conc 33.5 g/dL (32.0-36.0); Mean Platelet Volume 9.2 fL (9.4-12.4); Monocytes # (auto) 0.14 K/uL (0.11-0.59); Monocytes % (auto) 1.4 %; Neutrophils # (auto) 7.84 K/uL (1.40-6.50); Neutrophils % (auto) 81.3 %; Platelet Count 203 K/uL (130-400); RDW Standard Deviation 44.7 fL (36.4-46.3); Red Blood Count 4.16 M/uL (4.20-5.40); White Blood Count 9.66 K/ul (4.8-10.8)
[2023-02-02 08:18] LABS: Albumin Globulin Ratio 1.6 (0.9-2); Albumin Level 3.8 gm/dl (3.4-5.0); BUN Creatinine Ratio 36.5 (10-20); Bilirubin,Total 0.4 mg/dl (0.2-1.0); Calcium 8.5 mg/dl (8.6-10.3); Creatinine Clr Calc Pharmacy 51.9 ml/min; Est GFR (African American) 72.4 ml/min; Est GFR (Non-African American) 62.5 ml/min; Globulin 2.4 gm/dl (2.5-4.0); Potassium 4.6 mmol/L (3.5-5.1); Total Protein 6.2 gm/dl (6.0-8.3)
[2023-02-02] MEDS: POLYETHYLENE (MIRALAX) 17 GM PACK PO SCH (08:51)
[2023-02-02] MEDS: CARBIDOPA/LEVODOPA 25/100MG TAB PO SCH ×3 (08:52→20:02)
[2023-02-02] MEDS: CHOLECALCIFEROL 1,000 UNITS 25 MCG TAB PO SCH (08:52)
[2023-02-02] MEDS ORDERED: INFLUENZA VACCINE HIGH-DOSE (HD-IIV4) PF 65+ 0.7mL SYR IM ONE (09:00)
[2023-02-02] MEDS ORDERED: diphenhydrAMINE Capsule 25 MG CAP PO SCH (09:15)
[2023-02-02] MEDS: LORATADINE 10 MG TAB PO SCH (09:37)
[2023-02-02] MEDS: BETAMETHASONE DIP AUG (DIPROLENE) 0.05% CR 50 GM TUBE EXT SCH ×2 (09:37→20:03)
--- NOTE | 2023-02-02 13:01 | Dermatology Consultation ---
Date of Consultation February 02, 2023 Assessment & Plan (1) Contact dermatitis: Her exam today is most consistent with an irritant contact dermatitis. I suspect that this began in the buttocks/genital region in relation to irritation from her urinary incontinence, which was likely exacerbated by her urinary tract infection. Her daughter's cellphone photos from around the time of rash onset supports this. I also suspect that she did have some amount of secondary infection, either yeast/fungal or bacterial that led to worsening and an id reaction involving her upper extremities. I do not appreciate evidence of residual secondary infection on exam today. I discussed this in depth with patient's daughter. At this point, recommend the followin) Start hydrocortisone 2.5% cream mixed 1:1 with ketoconazole 2% cream and applied to areas of the buttocks, inguinal fold/genital region and abdominal fold twice daily x2 weeks. Discussed with patient's daughter that it likely will result in some amount of postinflammatory hyperpigmentation, which will take longer to resolve over time. 2) Continue betamethasone dipropionate 0.05% cream to areas of the arms twice daily x2 weeks for suspected component of id reaction. 3) Discussed with patient's daughter that her presentation and history is not highly suspicious for an adverse drug reaction to Macrobid. 4) Thank you for the consult. Call with any questions. Present on Admission?: Yes History of Present Illness Reason for Consultation: Rash Requesting Physician: Humberto Faith MD Attending Physician: Humberto Faith MD History of Present Illness Patient is a 87 y/o WF with past medical history significant for Parkinson's disease, hypothyroidism, lumbar spinal stenosis and urinary incontinence admitted to [facility] on 02/01/2023 with worsening rash. History is primarily obtained from daughter. Daughter reports that patient resides at [facility]. She was contacted from the personal care facility that patient had been diagnosed with urinary tract infection and started on Macrobid on 01/24/2023. She is not aware that there was any rash present at the time of her UTI diagnosis. A few days later it was noticed that she was developing r edness on the buttocks and groin region. She does have a history of urinary incontinence and wears adult diapers at the personal care facility. She was taken to urgent care on 01/30/2023 and was diagnosed with a possible yeast infection. She was given Diflucan every 72 hours x2 doses and nystatin/triamcinolone 1% cream to apply to areas of rash twice daily. Daughter believes that the Diflucan was erroneously given on 2 consecutive days instead of as ordered. Nonetheless, there was no noted improvement in her rash, and she started to develop additional areas on the abdomen and arms. No history of similar eruption in the past. No other new medicines prior to onset aside from Macrobid as reported above. Since admission she has been given prednisone 60 mg x 1 dose and betamethasone dipropionate 0.05% cream. She is also started empirically on IV ceftriaxone every 24 hours. Daughter reports that itching has lessened somewhat since the time of admission. They have been applying nystatin powder to areas of rash in the groin since the time of admission. Allergies Allergy/AdvReac Type Severity Reaction Status Date / Time nitrofurantoin Allergy Intermediate Rash Verified 02/01/23 22:46 [From Macrodantin] Home Medications Medication Instructions Recorded Confirmed Type Ultimate Bone Support 1 tab PO QAM 02/01/23 02/01/23 History acetaminophen 500 mg tablet 1,000 mg PO Q12H 02/01/23 02/01/23 History amantadine HCl 100 mg capsule 100 mg PO BID 02/01/23 02/01/23 History carbidopa 25 mg-levodopa 100 mg 2 tab PO TID 02/01/23 02/01/23 History tablet carbidopa ER 25 mg-levodopa 100 mg 1 tab PO HS 02/01/23 02/01/23 History tablet,extended release celecoxib 200 mg capsule 200 mg PO QAM 02/01/23 02/01/23 History cholecalciferol (vitamin D3) 25 50 mcg PO QAM 02/01/23 02/01/23 History mcg (1,000 unit) capsule (Vitamin D3) cranberry concentrate-ascorbic 1 cap PO QAM 02/01/23 02/01/23 History acid 140 mg-100 mg capsule (Cranberry Plus Vitamin C) diclofenac sodium 1 % topical gel 2 g topical QID PRN Moderate Pain 02/01/23 02/01/23 History (Scale Score 5-6) fluconazole 150 mg tablet 150 mg PO Q72H 02/01/23 02/01/23 History fluticasone propionate 50 2 spray intranasal HS 02/01/23 02/01/23 History mcg/actuation nasal spray,suspension levothyroxine 75 mcg tablet 75 mcg PO QAM 02/01/23 02/01/23 History nitrofurantoin 100 mg PO BID 02/01/23 02/01/23 History monohydrate/macrocrystals 100 mg capsule nystatin-triamcinolone topical 1 applic topical TID 02/01/23 02/01/23 History cream polyethylene glycol 3350 17 15 g PO DAILY 02/01/23 02/01/23 History gram/dose oral powder sulfacetamide sodium 10 % eye drops 1 drp ophthalmic (eye) BID 02/01/23 02/01/23 History trazodone 50 mg tablet 75 mg PO HS 02/01/23 02/01/23 History vibegron 75 mg tablet (Gemtesa) 75 mg PO HS 02/01/23 02/01/23 History Patient History Medical History (Updated 02/02/23 @ 15:37 by Brett Garcia MD) Contact dermatitis Hypothyroidism No pertinent family history Parkinson disease Urinary bladder incontinence UTI (urinary tract infection) Surgical History (Updated 02/01/23 @ 20:19 by Adriana Bae PA-C) Hx of appendectomy Hx of cholecystectomy Family History (Updated 02/01/23 @ 21:09 by Adriana Bae PA-C) Other Family history non-contributory Social History (Updated 02/01/23 @ 20:20 by Adriana Bae PA-C) Smoking Status: Never smoker Hx Alcohol Use: No Hx Substance Use: No Preferred Language: Thai Communication Ability: Effective Manhole Builder Required: No Beliefs That Will Affect Care: None Current Living Situation: Personal Care Facility Feels Safe at Home: Yes Assistive Devices: Walker and Wheelchair Review of Systems Review of Systems: Unobtainable due to cognitive status Physical Exam Physical Exam: General Appearance:Well developed, well-nourished and in no acute distress Psych:Alert, Oriented and Appropriate Skin Type:2 Scalp/Hair: no abnormalities noted. Face:no abnormalities noted. Eyelids/Ocular Mucosa: no abnormalities noted. Lips/Teeth/Gums: no abnormalities noted. Neck: no abnormalities noted. Right Lower Extremity:erythematous thin plaque on the proximal medial thigh; no satellite pustules/vesicles/bullae Left Lower Extremity:erythematous thin plaque on the proximal medial thigh; no satellite pustules/vesicles/bullae Back:no abnormalities noted. Buttocks/Groin/Genitalia: erythematous thin plaques on the buttocks, suprapubic skin, genitalia, inguinal folds; no satellite pustules/vesicles/bullae Right Upper Extremity:poorly-demarcated, erythematous, scaly thin plaque on the forearm, dorsal hand Left Upper Extremity:poorly-demarcated, erythematous, scaly thin plaques on the forearm, dorsal hand Chest/Breast/Axillae:no abnormalities noted. Abdomen:erythematous thin plaque on the abdominal fold; no satellite pustules/vesicles/bullae Other exam notes: Palms/soles clear. Results & Data Vital Signs (Past 12 Hours) Vital Signs Temp Pulse Pulse Resp BP BP Pulse Ox 02/02/23 11:31 36.5 C 92 H 16 165/86 H 95 02/02/23 08:00 02/02/23 07:00 89 02/02/23 07:35 36.5 C 85 16 149/82 H 178/82 H 94 02/02/23 03:10 36.6 C 85 18 152/83 H 96 O2 Del Method 02/02/23 11:31 Room Air 02/02/23 08:00 Room Air 02/02/23 07:00 02/02/23 07:35 Room Air 02/02/23 03:10 Room Air Laboratory Results 02/02/23 02/02/23 02/02/23 Range/Units 07:06 07:06 06:40 WBC 9.66 (4.8-10.8) K/ul RBC 4.16 L (4.20-5.40) M/uL Hgb 13.1 (12.0-16.0) g/dl Hct 39.1 (37.0-47.0) % MCV 94.0 (80.0-100.0) fL MCH 31.5 (25.0-34.0) pg MCHC 33.5 (32.0-36.0) g/dL RDW Std Deviation 44.7 (36.4-46.3) fL RDW Coeff of Wilber 13.0 (11.5-14.5) % Plt Count 203 (130-400) K/uL MPV 9.2 L (9.4-12.4) fL Immature Gran % (Auto) 0.8 % Neut % (Auto) 81.3 % Lymph % (Auto) 10.2 % Oliver % (Auto) 1.4 % Eos % (Auto) 6.1 % Baso % (Auto) 0.2 % Neut # (Auto) 7.84 H (1.40-6.50) K/uL Lymph # (Auto) 0.99 L (1.20-3.40) K/uL Oliver # (Auto) 0.14 (0.11-0.59) K/uL Eos # (Auto) 0.59 H (0.00-0.50) K/uL Baso # (Auto) 0.02 (0.00-0.20) K/uL Immature Gran # (Auto) 0.08 (0.01-0.20) K/uL ESR (0-30) mm/hr APTT (21.0-31.0) Seconds PTT Ratio D-Dimer (0-500) ug/L FEU Sodium 138 (136-145) mmol/L Potassium 4.6 (3.5-5.1) mmol/L Chloride 109 H (98-107) mmol/L Carbon Dioxide 22 (21-32) mmol/L Anion Gap 7 (3-11) BUN 31 H (6-23) mg/dl Creatinine 0.85 D (0.6-1.2) mg/dl Est Cr Clr Drug Dosing 51.9 ml/min Est GFR ( Amer) 72.4 ml/min Est GFR (Non-Af Amer) 62.5 ml/min BUN/Creatinine Ratio 36.5 H (10-20) Glucose 138 H (70-99(Fasting)) mg/dl Lactate (0.4-2.0) mmol/L Calcium 8.5 L (8.6-10.3) mg/dl Magnesium (1.7-2.4) mg/dl Total Bilirubin 0.4 (0.2-1.0) mg/dl AST 10 L (13-39) U/L ALT 9 (7-52) U/L Alkaline Phosphatase 72 (34-104) U/L Troponin I High Sens (0-14) pg/ml C-Reactive Protein (0-0.5) mg/dl Total Protein 6.2 (6.0-8.3) gm/dl Albumin 3.8 (3.4-5.0) gm/dl Globulin 2.4 L (2.5-4.0) gm/dl Albumin/Globulin Ratio 1.6 (0.9-2) Procalcitonin (0-0.5) ng/ml Urine Color Urine Appearance (Clear) Urine pH (4.5-7.5) Ur Specific [place] (1.000-1.030) Urine Protein (Negative) Urine Glucose (UA) (Negative) Urine Ketones (Negative) Urine Blood (Negative) Urine Nitrite (Negative) Urine Bilirubin (Negative) Urine Urobilinogen (Negative) Ur Leukocyte Esterase (Negative) Urine WBC (Auto) (0-5) /hpf Urine RBC (Auto) (0-4) /hpf U Hyaline Cast (Auto) (0-5) /lpf U Epithel Cells (Auto) (0-5) /lpf Urine Bacteria (Auto) (Negative) Urine Yeast Nasal Screen MRSA (PCR) Negative (Negative) Miscellaneous Test 02/01/23 02/01/23 02/01/23 Range/Units Unknown 23:15 23:02 WBC (4.8-10.8) K/ul RBC (4.20-5.40) M/uL Hgb (12.0-16.0) g/dl Hct (37.0-47.0) % MCV (80.0-100.0) fL MCH (25.0-34.0) pg MCHC (32.0-36.0) g/dL RDW Std Deviation (36.4-46.3) fL RDW Coeff of Wilber (11.5-14.5) % Plt Count (130-400) K/uL MPV (9.4-12.4) fL Immature Gran % (Auto) % Neut % (Auto) % Lymph % (Auto) % Oliver % (Auto) % Eos % (Auto) % Baso % (Auto) % Neut # (Auto) (1.40-6.50) K/uL Lymph # (Auto) (1.20-3.40) K/uL Oliver # (Auto) (0.11-0.59) K/uL Eos # (Auto) (0.00-0.50) K/uL Baso # (Auto) (0.00-0.20) K/uL Immature Gran # (Auto) (0.01-0.20) K/uL ESR (0-30) mm/hr APTT 25.9 (21.0-31.0) Seconds PTT Ratio 0.9 D-Dimer 5110 H* (0-500) ug/L FEU Sodium (136-145) mmol/L Potassium (3.5-5.1) mmol/L Chloride (98-107) mmol/L Carbon Dioxide (21-32) mmol/L Anion Gap (3-11) BUN (6-23) mg/dl Creatinine (0.6-1.2) mg/dl Est Cr Clr Drug Dosing ml/min Est GFR ( Amer) ml/min Est GFR (Non-Af Amer) ml/min BUN/Creatinine Ratio (10-20) Glucose (70-99(Fasting)) mg/dl Lactate (0.4-2.0) mmol/L Calcium (8.6-10.3) mg/dl Magnesium (1.7-2.4) mg/dl Total Bilirubin (0.2-1.0) mg/dl AST (13-39) U/L ALT (7-52) U/L Alkaline Phosphatase (34-104) U/L Troponin I High Sens (0-14) pg/ml C-Reactive Protein (0-0.5) mg/dl Total Protein (6.0-8.3) gm/dl Albumin (3.4-5.0) gm/dl Globulin (2.5-4.0) gm/dl Albumin/Globulin Ratio (0.9-2) Procalcitonin (0-0.5) ng/ml Urine Color Dark Yellow Urine Appearance Cloudy A (Clear) Urine pH 5.0 (4.5-7.5) Ur Specific [place] 1.035 H (1.000-1.030) Urine Protein Negative (Negative) Urine Glucose (UA) Negative (Negative) Urine Ketones Trace H (Negative) Urine Blood Negative (Negative) Urine Nitrite Negative (Negative) Urine Bilirubin Negative (Negative) Urine Urobilinogen Negative (Negative) Ur Leukocyte Esterase Trace H (Negative) Urine WBC (Auto) 10-30 H (0-5) /hpf Urine RBC (Auto) 0-4 (0-4) /hpf U Hyaline Cast (Auto) 1-5 (0-5) /lpf U Epithel Cells (Auto) >30 H (0-5) /lpf Urine Bacteria (Auto) Negative (Negative) Urine Yeast Not Reportable Nasal Screen MRSA (PCR) (Negative) Miscellaneous Test Pending 02/01/23 02/01/23 02/01/23 Range/Units 21:53 21:52 14:19 WBC (4.8-10.8) K/ul RBC (4.20-5.40) M/uL Hgb (12.0-16.0) g/dl Hct (37.0-47.0) % MCV (80.0-100.0) fL MCH (25.0-34.0) pg MCHC (32.0-36.0) g/dL RDW Std Deviation (36.4-46.3) fL RDW Coeff of Wilber (11.5-14.5) % Plt Count (130-400) K/uL MPV (9.4-12.4) fL Immature Gran % (Auto) % Neut % (Auto) % Lymph % (Auto) % Oliver % (Auto) % Eos % (Auto) % Baso % (Auto) % Neut # (Auto) (1.40-6.50) K/uL Lymph # (Auto) (1.20-3.40) K/uL Oliver # (Auto) (0.11-0.59) K/uL Eos # (Auto) (0.00-0.50) K/uL Baso # (Auto) (0.00-0.20) K/uL Immature Gran # (Auto) (0.01-0.20) K/uL ESR (0-30) mm/hr APTT (21.0-31.0) Seconds PTT Ratio D-Dimer (0-500) ug/L FEU Sodium (136-145) mmol/L Potassium (3.5-5.1) mmol/L Chloride (98-107) mmol/L Carbon Dioxide (21-32) mmol/L Anion Gap (3-11) BUN (6-23) mg/dl Creatinine (0.6-1.2) mg/dl Est Cr Clr Drug Dosing ml/min Est GFR ( Amer) ml/min Est GFR (Non-Af Amer) ml/min BUN/Creatinine Ratio (10-20) Glucose (70-99(Fasting)) mg/dl Lactate 1.2 (0.4-2.0) mmol/L Calcium (8.6-10.3) mg/dl Magnesium (1.7-2.4) mg/dl Total Bilirubin (0.2-1.0) mg/dl AST (13-39) U/L ALT (7-52) U/L Alkaline Phosphatase (34-104) U/L Troponin I High Sens 4.7 (0-14) pg/ml C-Reactive Protein (0-0.5) mg/dl Total Protein (6.0-8.3) gm/dl Albumin (3.4-5.0) gm/dl Globulin (2.5-4.0) gm/dl Albumin/Globulin Ratio (0.9-2) Procalcitonin 0.13 (0-0.5) ng/ml Urine Color Urine Appearance (Clear) Urine pH (4.5-7.5) Ur Specific [place] (1.000-1.030) Urine Protein (Negative) Urine Glucose (UA) (Negative) Urine Ketones (Negative) Urine Blood (Negative) Urine Nitrite (Negative) Urine Bilirubin (Negative) Urine Urobilinogen (Negative) Ur Leukocyte Esterase (Negative) Urine WBC (Auto) (0-5) /hpf Urine RBC (Auto) (0-4) /hpf U Hyaline Cast (Auto) (0-5) /lpf U Epithel Cells (Auto) (0-5) /lpf Urine Bacteria (Auto) (Negative) Urine Yeast Nasal Screen MRSA (PCR) (Negative) Miscellaneous Test 02/01/23 02/01/23 Range/Units 14:18 14:18 WBC (4.8-10.8) K/ul RBC (4.20-5.40) M/uL Hgb (12.0-16.0) g/dl Hct (37.0-47.0) % MCV (80.0-100.0) fL MCH (25.0-34.0) pg MCHC (32.0-36.0) g/dL RDW Std Deviation (36.4-46.3) fL RDW Coeff of Wilber (11.5-14.5) % Plt Count (130-400) K/uL MPV (9.4-12.4) fL Immature Gran % (Auto) % Neut % (Auto) % Lymph % (Auto) % Oliver % (Auto) % Eos % (Auto) % Baso % (Auto) % Neut # (Auto) (1.40-6.50) K/uL Lymph # (Auto) (1.20-3.40) K/uL Oliver # (Auto) (0.11-0.59) K/uL Eos # (Auto) (0.00-0.50) K/uL Baso # (Auto) (0.00-0.20) K/uL Immature Gran # (Auto) (0.01-0.20) K/uL ESR 19 (0-30) mm/hr APTT (21.0-31.0) Seconds PTT Ratio D-Dimer (0-500) ug/L FEU Sodium (136-145) mmol/L Potassium (3.5-5.1) mmol/L Chloride (98-107) mmol/L Carbon Dioxide (21-32) mmol/L Anion Gap (3-11) BUN (6-23) mg/dl Creatinine (0.6-1.2) mg/dl Est Cr Clr Drug Dosing ml/min Est GFR ( Amer) ml/min Est GFR (Non-Af Amer) ml/min BUN/Creatinine Ratio (10-20) Glucose (70-99(Fasting)) mg/dl Lactate (0.4-2.0) mmol/L Calcium (8.6-10.3) mg/dl Magnesium 2.2 (1.7-2.4) mg/dl Total Bilirubin (0.2-1.0) mg/dl AST (13-39) U/L ALT (7-52) U/L Alkaline Phosphatase (34-104) U/L Troponin I High Sens (0-14) pg/ml C-Reactive Protein 2.22 H (0-0.5) mg/dl Total Protein (6.0-8.3) gm/dl Albumin (3.4-5.0) gm/dl Globulin (2.5-4.0) gm/dl Albumin/Globulin Ratio (0.9-2) Procalcitonin (0-0.5) ng/ml Urine Color Urine Appearance (Clear) Urine pH (4.5-7.5) Ur Specific [place] (1.000-1.030) Urine Protein (Negative) Urine Glucose (UA) (Negative) Urine Ketones (Negative) Urine Blood (Negative) Urine Nitrite (Negative) Urine Bilirubin (Negative) Urine Urobilinogen (Negative) Ur Leukocyte Esterase (Negative) Urine WBC (Auto) (0-5) /hpf Urine RBC (Auto) (0-4) /hpf U Hyaline Cast (Auto) (0-5) /lpf U Epithel Cells (Auto) (0-5) /lpf Urine Bacteria (Auto) (Negative) Urine Yeast Nasal Screen MRSA (PCR) (Negative) Miscellaneous Test Diagnostic Findings Imaging and microbiology reviewed in [facility]. Medications Administered MAR reviewed in [facility]. PG Care Time/CCT Total # of Minutes Spent Total Time Spent with Patient: Total time spent is greater than 50% in coordination of care (as documented) at patient's floor/unit and/or counseling patient: Coding Level of Care Code 87793 INT INP/OBS CARE 2/55MIN Diagnoses Contact dermatitis L25.9 Contact dermatitis type: irritant Type of body fluid: urinary incontinence (1) Contact dermatitis Contact dermatitis type: irritant Type of body fluid: urinary incontinence
--- NOTE | 2023-02-02 14:26 | Electrocardiogram Report ---
Test Reason : Blood Pressure : / mmHG Vent. Rate : 097 BPM Atrial Rate : 097 BPM P-R Int : 132 ms QRS Dur : 086 ms QT Int : 342 ms P-R-T Axes : 075 062 075 degrees QTc Int : 434 ms Normal sinus rhythm Normal ECG When compared with ECG of 15-JUN-2022 13:33, No significant change was found Confirmed by Chau Valadez ([id number]) on 02/02/2023 2:26:19 PM Referred By: Dre Silva Confirmed By:Guilherme Valadez
--- NOTE | 2023-02-02 17:22 | Hospitalist Progress Note ---
Date of Service February 02, 2023 Assessment & Plan (1) Rash and nonspecific skin eruption: (2) KEV (acute kidney injury): (3) Parkinson disease: Plan: This is an 87-year-old female who has a significant past medical history of Parkinson's disease, hypothyroidism, lumbar spinal stenosis, osteoarthritis, urinary incontinence who presents to ED secondary to rash x2 days. Rash and nonspecific skin eruption, possible drug reaction, irritant contact dermatitis Macrobid discontinued On prednisone 40 mg daily, Benadryl 25 mg twice daily, loratadine daily Also on betamethasone cream twice daily Dermatology was consulted, current reaction unlikely as per Dr. Garcia Ordered hydrocortisone plus ketoconazole cream twice daily Reyes catheter placed as patient's incontinence causing contact dermatitis KEV Baseline creatinine 1.0 BUN/creatinine 38 1.34 Resolved with IV fluids Shortness of breath From underlying Parkinson disease? CT chest: No pneumonia, no PE Echocardiogram ordered Parkinson's disease Chronic, stable Continue amantadine and carbidopa levodopa Hypothyroidism Chronic, stable Continue levothyroxine DVT ppx: SQ Lovenox Dispo: pt resides at [facility] DNR/DNI plan of care discussed with patient and her daughter Anderson in detail and at length all questions answered They are understanding, agreeable, comfortable with the plan of care Admission and Anticipated Discharge Date Admission Date: February 01, 2023 Subjective Follow-up for diffuse rash, possible drug reaction, etc. Seen resting in bed, sitting up, not in distress States she feels fine overall Except for being tired Also has some mild shortness of breath which is chronic Reports itching has decreased compared to yesterday Denies any other symptoms Review of Systems Review of Systems: all noted and negative except for above Physical Exam Physical Exam: General- oriented x 3, not in distress, speaks in sentences with no effort or accessory muscle use Eyes- anicteric Neck- no JVD Lungs- clear breath sounds bilaterally, no rales/wheezes Heart- normal rate, regular rhythm; no murmurs Abdomen- normal bowel sounds, nondistended, soft, nontender Diffuse positive erythema with papules along the abdominal folds, upper abdominal area Inguinal area, indurated thighs, bilateral buttock region Extremities- no pretibial edema, no calf tenderness Neuro- alert, oriented x 3; no gross focal neurologic deficits Skin- warm & dry Results & Data Results & Data Vital Signs (Past 12 Hours) Vital Signs Temp Pulse Pulse Resp BP BP Pulse Ox 02/02/23 15:33 36.5 C 86 16 146/75 H 94 02/02/23 11:31 36.5 C 92 H 16 165/86 H 95 02/02/23 08:00 02/02/23 07:00 89 02/02/23 07:35 36.5 C 85 16 149/82 H 178/82 H 94 O2 Del Method O2 Flow Rate 02/02/23 15:33 Nasal Cannula 2 02/02/23 11:31 Room Air 02/02/23 08:00 Room Air 02/02/23 07:00 02/02/23 07:35 Room Air all noted and reviewed including below
[2023-02-02] MEDS ORDERED: predniSONE 20 MG TAB PO SCH (18:00)
[2023-02-02] MEDS: VIBEGRON 75 MG TAB PO SCH (20:02)
[2023-02-02] MEDS: diphenhydrAMINE Capsule 25 MG CAP PO SCH (20:02)
[2023-02-02] MEDS: CARBIDOPA/LEVODOPA 25/100MG EXT REL TAB PO SCH (20:02)
[2023-02-02] MEDS: traZODone HCL 50 MG TAB PO SCH (20:02)
[2023-02-02] MEDS: FLUTICASONE PROPIONATE NA SPR 16 GM BTL SCH (20:03)
[2023-02-02] MEDS: HYDROCORTISONE 2.5% CR 30 GM TUBE EXT SCH (20:03)
[2023-02-02] MEDS: KETOCONAZOLE 2% CR 15 GM TUBE EXT SCH (20:04)
[2023-02-02] MEDS ORDERED: cefTRIAXone SODIUM 2,000 MG in DEXTROSE 5% 50 ML IV SCH (22:00)
[2023-02-03] MEDS: ACETAMINOPHEN 500 MG TAB PO SCH ×3 (06:19→18:59)
[2023-02-03] MEDS: LEVOTHYROXINE SODIUM 75 MCG TABLET PO SCH (06:19)
[2023-02-03] MEDS: diphenhydrAMINE Capsule 25 MG CAP PO SCH ×2 (08:51→20:59)
[2023-02-03] MEDS: CHOLECALCIFEROL 1,000 UNITS 25 MCG TAB PO SCH (08:51)
[2023-02-03] MEDS: AMANTADINE HCL 100 MG CAPSULE PO SCH ×2 (08:52→21:00)
[2023-02-03] MEDS: CARBIDOPA/LEVODOPA 25/100MG TAB PO SCH ×3 (08:52→20:59)
[2023-02-03] MEDS: ENOXAPARIN INJ 40 MG/0.4 ML SYR SQ SCH (08:53)
[2023-02-03] MEDS: BETAMETHASONE DIP AUG (DIPROLENE) 0.05% CR 50 GM TUBE EXT SCH ×2 (08:53→21:01)
[2023-02-03] MEDS: LORATADINE 10 MG TAB PO SCH (08:54)
[2023-02-03] MEDS: HYDROCORTISONE 2.5% CR 30 GM TUBE EXT SCH ×2 (08:54→21:01)
[2023-02-03] MEDS: KETOCONAZOLE 2% CR 15 GM TUBE EXT SCH ×2 (08:54→21:01)
[2023-02-03] MEDS: POLYETHYLENE (MIRALAX) 17 GM PACK PO SCH (08:54)
[2023-02-03] MEDS: amLODIPine BESYLATE 5 MG TAB PO SCH (10:33)
[2023-02-03] MEDS: predniSONE 20 MG TAB PO SCH (10:33)
--- NOTE | 2023-02-03 10:37 | Pulmonary Consultation ---
Date of Consultation February 03, 2023 Assessment & Plan (1) Parkinson disease: (2) Exertional shortness of breath: (3) Pulmonary nodule: Plan CTA chest 02/02/2023 personally reviewed: Right upper lobe 4 mm pulmonary nodule No pulmonary infiltrate No mediastinal lymphadenopathy 2D echo 02/02/2023: EF 70%, RSVP 39 mmHg, mild concentric LVH, grade 1 diastolic dysfunction -- Shortness of breath Etiology is not clear She does have grade 1 diastolic dysfunction with good EF Has gained 30 pounds in the last year Long course of Parkinson's No personal or family history of asthma --Pulmonary nodule 4 mm, life time non smoker No further CAT scan of the chest needed Plan: Diaphragmatic involvement and Parkinson's is very rare. When it does occur, patient usually have difficulty breathing when laying down. Would recommend outpatient pelvic sonography as well as PFT with supine SVC There is no intervention needed from pulmonary side actively while she is in the hospital Weight loss will be beneficial Case was discussed with Dr. Faith Please note the above document was generated using voice recognition software. It may contain grammatical, syntax or spelling errors.Any formal questions or concerns about the content, text or information contained within the body of this dictation should be directly addressed to the provider for clarification. History of Present Illness Attending Physician: Humberto Faith MD History of Present Illness 87-year-old female present to the hospital for rash Past medical history: Parkinson's, hypothyroidism, osteoarthritis, urinary incontinence Pulmonary consulted for shortness of breath At the time of examination patient was resting comfortably in the bed. Not in any respiratory distress She was saturating 92-93% on room air. She says she has been having issues with breathing for approximately 2-3 months progressively getting worse It is mostly when she is exerting herself. Associated with huffing and puffing. Denies any chest pain, no chest tightness, no wheezing, no diaphoresis, no palpitation at that time. She has gained approximately 30 pounds in the last year. Denies any fever or chills No cough, no hemoptysis No nausea vomiting Fair appetite Social history: Lifetime non-smoker No personal or family history of asthma Allergies Allergy/AdvReac Type Severity Reaction Status Date / Time nitrofurantoin Allergy Intermediate Rash Verified 02/01/23 22:46 [From Macrodantin] Home Medications Medication Instructions Recorded Confirmed Type Ultimate Bone Support 1 tab PO QAM 02/01/23 02/01/23 History acetaminophen 500 mg tablet 1,000 mg PO Q12H 02/01/23 02/01/23 History amantadine HCl 100 mg capsule 100 mg PO BID 02/01/23 02/01/23 History carbidopa 25 mg-levodopa 100 mg 2 tab PO TID 02/01/23 02/01/23 History tablet carbidopa ER 25 mg-levodopa 100 mg 1 tab PO HS 02/01/23 02/01/23 History tablet,extended release celecoxib 200 mg capsule 200 mg PO QAM 02/01/23 02/01/23 History cholecalciferol (vitamin D3) 25 50 mcg PO QAM 02/01/23 02/01/23 History mcg (1,000 unit) capsule (Vitamin D3) cranberry concentrate-ascorbic 1 cap PO QAM 02/01/23 02/01/23 History acid 140 mg-100 mg capsule (Cranberry Plus Vitamin C) diclofenac sodium 1 % topical gel 2 g topical QID PRN Moderate Pain 02/01/23 02/01/23 History (Scale Score 5-6) fluconazole 150 mg tablet 150 mg PO Q72H 02/01/23 02/01/23 History fluticasone propionate 50 2 spray intranasal HS 02/01/23 02/01/23 History mcg/actuation nasal spray,suspension levothyroxine 75 mcg tablet 75 mcg PO QAM 02/01/23 02/01/23 History nitrofurantoin 100 mg PO BID 02/01/23 02/01/23 History monohydrate/macrocrystals 100 mg capsule nystatin-triamcinolone topical 1 applic topical TID 02/01/23 02/01/23 History cream polyethylene glycol 3350 17 15 g PO DAILY 02/01/23 02/01/23 History gram/dose oral powder sulfacetamide sodium 10 % eye drops 1 drp ophthalmic (eye) BID 02/01/23 02/01/23 History trazodone 50 mg tablet 75 mg PO HS 02/01/23 02/01/23 History vibegron 75 mg tablet (Gemtesa) 75 mg PO HS 02/01/23 02/01/23 History Patient History Medical History (Updated 02/03/23 @ 13:44 by Mary Valdes MD, [facility]) Contact dermatitis Hypothyroidism No pertinent family history Parkinson disease Urinary bladder incontinence UTI (urinary tract infection) Surgical History (Updated 02/01/23 @ 20:19 by Adriana Bae PA-C) Hx of appendectomy Hx of cholecystectomy Family History (Updated 02/01/23 @ 21:09 by Adriana Bae PA-C) Other Family history non-contributory Social History (Updated 02/01/23 @ 20:20 by Adriana Bae PA-C) Smoking Status: Never smoker Hx Alcohol Use: No Hx Substance Use: No Preferred Language: Kiswahili Communication Ability: Effective Environmental Permitting Specialist Required: No Beliefs That Will Affect Care: None Current Living Situation: Personal Care Facility Feels Safe at Home: Yes Safety Concerns: Feels Safe At This Time Assistive Devices: Walker and Wheelchair Review of Systems Review of Systems: All systems reviewed & are unremarkable except as noted in HPI & below Physical Exam Physical Exam: Constitutional: No acute distress HEENT: EOMI, PERRLA Respiratory system: Good air entry bilaterally, no wheeze, no rhonchi, mild crackles bilateral lower lobes CVS: S1-S2 positive, no murmurs or gallops Abdomen: Soft, nontender, nondistended, positive bowel sounds x4, obese Extremities: +2 pulses bilaterally radialis/ dorsalis pedis, no cyanosis, minimal pitting edema bilateral lower extremity Neuro: Awake alert oriented x3 Psych: Normal mood and affect G/U: Positive Reyes Skin: no rashes, warm and dry Lymphatic: no cervical or axillary lymphadenopathy Results & Data Results & Data Vital Signs (Past 12 Hours) Vital Signs Temp Pulse Resp BP Pulse Ox O2 Del Method 02/03/23 07:42 36.6 C 76 17 148/76 H 95 Room Air 02/03/23 04:18 36.9 C 82 16 165/83 H 93 Room Air 02/02/23 23:20 37.2 C 91 H 16 165/84 H 93 Room Air Laboratory Results 02/02/23 07:06 02/02/23 07:06 PG Care Time/CCT Total # of Minutes Spent Total Time Spent with Patient: Total time spent is greater than 50% in coordination of care (as documented) at patient's floor/unit and/or counseling patient: Coding Level of Care Code 27487 INT INP/OBS CARE MIN Diagnoses Parkinson disease G20 Exertional shortness of breath R06.02 Pulmonary nodule R91.1
[2023-02-03 11:08] LABS: Estimated Average Glucose 117 mg/dl; Hemoglobin A1C 5.7 % (4.5-5.6)
--- NOTE | 2023-02-03 13:06 | Hospitalist Progress Note ---
Date of Service February 03, 2023 Assessment & Plan (1) Rash and nonspecific skin eruption: (2) KEV (acute kidney injury): (3) Parkinson disease: Plan: This is an 87-year-old female who has a significant past medical history of Parkinson's disease, hypothyroidism, lumbar spinal stenosis, osteoarthritis, urinary incontinence who presents to ED secondary to rash x2 days. Rash and nonspecific skin eruption, possible drug reaction, irritant contact dermatitis Macrobid discontinued On prednisone 40 mg daily, Benadryl 25 mg twice daily, loratadine daily Also on betamethasone cream twice daily Dermatology was consulted, current reaction unlikely as per Dr. Garcia Ordered hydrocortisone plus ketoconazole cream twice daily Reyes catheter placed as patient's incontinence causing contact dermatitis / rash on the left wrist expanding feels itchy again Prednisone 40mg po daily continue Claritin, Benadryl Steroid and antifungal cream HTN no past history likely from steroids, stress start Amlodipine 5mg po daily Hydralazine PRN KEV Baseline creatinine 1.0 BUN/creatinine 38 1.34 Resolved with IV fluids Shortness of breath From underlying Parkinson disease? CT chest: No pneumonia, no PE Echocardiogram noted will consult Pulm Parkinson's disease Chronic, stable Continue amantadine and carbidopa levodopa Hypothyroidism Chronic, stable Continue levothyroxine DVT ppx: SQ Lovenox Dispo: pt resides at [facility] DNR/DNI plan of care discussed with patient and her daughter Anderson in detail and at length all questions answered They are understanding, agreeable, comfortable with the plan of care Admission and Anticipated Discharge Date Admission Date: February 01, 2023 Subjective ff up for diffuse rash possible contact dermatitis, vs drug rash, etc seen resting in bed, comfortable daughters at bedside visiting states she feels itchy again no fever/chills had a good night sleep, family reports patient seems more refreshed from sleeping well, which has not happened in a while due to incontinence still having dyspnea Review of Systems Review of Systems: all noted and negative except for above Physical Exam Physical Exam: General- oriented x 2, not in distress, speaks in sentences with no effort or accessory muscle use Eyes- anicteric Neck- no JVD Lungs- clear breath sounds bilaterally Heart- normal rate, regular rhythm; no murmurs Abdomen- normal bowel sounds, nondistended, soft, nontender (+) diffuse erythematous rash: similar to yesterday Extremities- no pretibial edema, no calf tenderness (+) more erythema on the Left hand dorsal and wrist area Neuro- alert, oriented x 3; no gross focal neurologic deficits Skin- warm & dry Results & Data Results & Data Vital Signs (Past 12 Hours) Vital Signs Temp Pulse Pulse Resp BP BP Pulse Ox 02/03/23 11:46 36.6 C 82 19 172/80 H 92 02/03/23 10:57 80 02/03/23 10:57 02/03/23 07:42 36.6 C 76 17 148/76 H 95 02/03/23 04:18 36.9 C 82 16 165/83 H 93 O2 Del Method 02/03/23 11:46 Room Air 02/03/23 10:57 02/03/23 10:57 Room Air 02/03/23 07:42 Room Air 02/03/23 04:18 Room Air all noted and reviewed including below
[2023-02-03] MEDS: hydrALAZINE HCL 20 MG/ML VIAL IV PRN (13:59)
[2023-02-03] MEDS: diphenhydrAMINE 2%/ZINC 0.1% CREAM 28.4GM TUBE EXT PRN (19:00)
[2023-02-03] MEDS: VIBEGRON 75 MG TAB PO SCH (20:59)
[2023-02-03] MEDS: traZODone HCL 50 MG TAB PO SCH (20:59)
[2023-02-03] MEDS: FLUTICASONE PROPIONATE NA SPR 16 GM BTL SCH (21:00)
[2023-02-03] MEDS: CARBIDOPA/LEVODOPA 25/100MG EXT REL TAB PO SCH (21:00)
[2023-02-04] MEDS: LEVOTHYROXINE SODIUM 75 MCG TABLET PO SCH (05:24)
[2023-02-04] MEDS: ACETAMINOPHEN 500 MG TAB PO SCH ×2 (05:24→17:55)
[2023-02-04] MEDS: hydrALAZINE HCL 20 MG/ML VIAL IV PRN (05:24)
[2023-02-04] MEDS: CARBIDOPA/LEVODOPA 25/100MG TAB PO SCH ×3 (07:35→20:15)
[2023-02-04] MEDS: AMANTADINE HCL 100 MG CAPSULE PO SCH ×2 (07:36→20:14)
[2023-02-04] MEDS: ENOXAPARIN INJ 40 MG/0.4 ML SYR SQ SCH (07:36)
[2023-02-04] MEDS: HYDROCORTISONE 2.5% CR 30 GM TUBE EXT SCH ×2 (07:37→20:17)
[2023-02-04] MEDS: KETOCONAZOLE 2% CR 15 GM TUBE EXT SCH ×2 (07:37→20:18)
[2023-02-04] MEDS: BETAMETHASONE DIP AUG (DIPROLENE) 0.05% CR 50 GM TUBE EXT SCH ×2 (07:37→20:14)
[2023-02-04] MEDS: CHOLECALCIFEROL 1,000 UNITS 25 MCG TAB PO SCH (07:38)
[2023-02-04] MEDS: predniSONE 20 MG TAB PO SCH (07:38)
[2023-02-04] MEDS: LORATADINE 10 MG TAB PO SCH (07:39)
[2023-02-04] MEDS: diphenhydrAMINE Capsule 25 MG CAP PO SCH ×2 (07:39→20:16)
[2023-02-04] MEDS: amLODIPine BESYLATE 5 MG TAB PO SCH (07:40)
[2023-02-04] MEDS: POLYETHYLENE (MIRALAX) 17 GM PACK PO SCH (07:45)
[2023-02-04] MEDS ORDERED: SULFACETAMIDE SODIUM 10% OP SOLN 15 ML BTL OP SCH (10:00)
[2023-02-04] MEDS ORDERED: amLODIPine BESYLATE 5 MG TAB PO ONE (10:00)
[2023-02-04] MEDS: SULFACETAMIDE SODIUM 10% OP SOLN 15 ML BTL OPB SCH ×2 (10:45→20:18)
--- NOTE | 2023-02-04 14:23 | Hospitalist Progress Note ---
Date of Service February 04, 2023 Assessment & Plan (1) Rash and nonspecific skin eruption: (2) KEV (acute kidney injury): (3) Parkinson disease: Plan: This is an 87-year-old female who has a significant past medical history of Parkinson's disease, hypothyroidism, lumbar spinal stenosis, osteoarthritis, urinary incontinence who presents to ED secondary to rash x2 days. Rash and nonspecific skin eruption, possible drug reaction, irritant contact dermatitis Macrobid discontinued On prednisone 40 mg daily, Benadryl 25 mg twice daily, loratadine daily Also on betamethasone cream twice daily Dermatology was consulted, current reaction unlikely as per Dr. Garcia Ordered hydrocortisone plus ketoconazole cream twice daily Reyes catheter placed as patient's incontinence causing contact dermatitis 02/04 continue Prednisone 40mg po daily continue Claritin, Benadryl Steroid and antifungal cream HTN no past history likely from steroids, stress increase Amlodipine 10 mg po daily Hydralazine PRN KEV Baseline creatinine 1.0 BUN/creatinine 38 1.34 Resolved with IV fluids Shortness of breath From underlying Parkinson disease? CT chest: No pneumonia, no PE Echocardiogram noted will consult Pulm: recommend outpatient PFT, Sleep Study Parkinson's disease Chronic, stable Continue amantadine and carbidopa levodopa Hypothyroidism Chronic, stable Continue levothyroxine DVT ppx: SQ Lovenox Dispo: pt resides at [facility] DNR/DNI Admission and Anticipated Discharge Date Admission Date: February 01, 2023 Subjective ff up for generalized rash, etc seen resting in bed, comfortable sitting up was able to sleep well last night itchiness improved but returned this morning no fever/chills no other new symptoms Review of Systems Review of Systems: all noted and negative except for above Physical Exam Physical Exam: General- oriented x 3, not in distress, speaks in sentences with no effort or accessory muscle use Eyes- anicteric Neck- no JVD Lungs- clear breath sounds bilaterally Heart- normal rate, regular rhythm; no murmurs Abdomen- normal bowel sounds, nondistended, soft, no tenderness Extremities- no pretibial edema, no calf tenderness (+) erythema on BL Hands rash on the abdomen 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
[2023-02-04] MEDS: CARBIDOPA/LEVODOPA 25/100MG EXT REL TAB PO SCH (20:12)
[2023-02-04] MEDS: FLUTICASONE PROPIONATE NA SPR 16 GM BTL SCH (20:17)
[2023-02-04] MEDS: traZODone HCL 50 MG TAB PO SCH (20:19)
[2023-02-04] MEDS: VIBEGRON 75 MG TAB PO SCH (20:20)
[2023-02-04] MEDS ORDERED: amLODIPine BESYLATE 5 MG TAB PO SCH (21:00)
[2023-02-05] MEDS: LEVOTHYROXINE SODIUM 75 MCG TABLET PO SCH (06:02)
[2023-02-05] MEDS: ACETAMINOPHEN 500 MG TAB PO SCH ×2 (06:02→17:46)
[2023-02-05 07:16] LABS: Hematocrit (blood only) 39.6 % (37.0-47.0); Mean Corpuscular Hemoglobin 31.7 pg (25.0-34.0); Mean Corpuscular Hgb Conc 35.4 g/dL (32.0-36.0); Mean Corpuscular Volume 89.8 fL (80.0-100.0); Platelet Count 273 K/uL (130-400); RDW Coefficient of Variation 12.5 % (11.5-14.5); RDW Standard Deviation 41.7 fL (36.4-46.3); Red Blood Count 4.41 M/uL (4.20-5.40); White Blood Count 12.71 K/ul (4.8-10.8)
[2023-02-05 07:35] LABS: Creatinine Clr Calc Pharmacy 42.2 ml/min; Est GFR (African American) 57.4 ml/min; Est GFR (Non-African American) 49.5 ml/min
[2023-02-05] MEDS: diphenhydrAMINE Capsule 25 MG CAP PO SCH ×2 (08:35→19:28)
[2023-02-05] MEDS: POLYETHYLENE (MIRALAX) 17 GM PACK PO SCH (08:35)
[2023-02-05] MEDS: LORATADINE 10 MG TAB PO SCH (08:35)
[2023-02-05] MEDS: CHOLECALCIFEROL 1,000 UNITS 25 MCG TAB PO SCH (08:36)
[2023-02-05] MEDS: predniSONE 20 MG TAB PO SCH (08:36)
[2023-02-05] MEDS: amLODIPine BESYLATE 5 MG TAB PO SCH (08:36)
[2023-02-05] MEDS: AMANTADINE HCL 100 MG CAPSULE PO SCH ×2 (08:37→19:29)
[2023-02-05] MEDS: ENOXAPARIN INJ 40 MG/0.4 ML SYR SQ SCH (08:37)
[2023-02-05] MEDS: CARBIDOPA/LEVODOPA 25/100MG TAB PO SCH ×3 (08:37→19:24)
[2023-02-05] MEDS: BETAMETHASONE DIP AUG (DIPROLENE) 0.05% CR 50 GM TUBE EXT SCH ×2 (08:37→19:25)
[2023-02-05] MEDS: SULFACETAMIDE SODIUM 10% OP SOLN 15 ML BTL OPB SCH ×2 (08:38→19:24)
[2023-02-05] MEDS: KETOCONAZOLE 2% CR 15 GM TUBE EXT SCH ×2 (08:38→19:26)
[2023-02-05] MEDS: HYDROCORTISONE 2.5% CR 30 GM TUBE EXT SCH ×2 (08:38→19:24)
[2023-02-05] MEDS: lisinopril 5 MG TAB PO SCH (10:00)
[2023-02-05] MEDS: PANTOprazole 40 MG TAB PO SCH (10:00)
--- NOTE | 2023-02-05 11:42 | Hospitalist Progress Note ---
Date of Service February 05, 2023 Assessment & Plan (1) Rash and nonspecific skin eruption: (2) KEV (acute kidney injury): (3) Parkinson disease: Plan: This is an 87-year-old female who has a significant past medical history of Parkinson's disease, hypothyroidism, lumbar spinal stenosis, osteoarthritis, urinary incontinence who presents to ED secondary to rash x2 days. Rash and nonspecific skin eruption, possible drug reaction, irritant contact dermatitis Macrobid discontinued On prednisone 40 mg daily, Benadryl 25 mg twice daily, loratadine daily Also on betamethasone cream twice daily Dermatology was consulted, current reaction unlikely as per Dr. Garcia Ordered hydrocortisone plus ketoconazole cream twice daily Reyes catheter placed as patient's incontinence causing contact dermatitis 02/05 rash gradually improving continue Prednisone 40mg po daily continue Claritin, Benadryl Steroid and antifungal cream HTN no past history likely from steroids, stress increased Amlodipine 10 mg po daily still not at goal, add Lisinopril 5mg po daily Hydralazine PRN Chest pain Episode noted midnight of 02/04 trop negative EKG no signs of acute ischemia Resolved with tramadol Possible reflux from prednisone? Add Protonix daily KEV Baseline creatinine 1.0 BUN/creatinine 38 1.34 Resolved with IV fluids Shortness of breath From underlying Parkinson disease? CT chest: No pneumonia, no PE Echocardiogram noted consulted Pulm: recommend outpatient PFT, Sleep Study Parkinson's disease Chronic, stable Continue amantadine and carbidopa levodopa Hypothyroidism Chronic, stable Continue levothyroxine DVT ppx: SQ Lovenox Dispo: pt resides at [facility] DNR/DNI Admission and Anticipated Discharge Date Admission Date: February 01, 2023 Subjective ff up for diffuse rash, possible drug reaction and contact dermatitis, etc. Seen resting in bed, having breakfast In good spirits States she did not sleep well last night due to chest discomfort-pressure Resolved with tramadol Denies chest pain, shortness of breath, palpitations, dizziness, nausea this morning Itchiness somewhat better No other new symptoms Review of Systems Review of Systems: all noted and negative except for above Physical Exam Physical Exam: General- oriented x 3, not in distress, speaks in sentences with no effort or accessory muscle use Eyes- anicteric Neck- no JVD Lungs- clear breath sounds bilaterally, no rales/wheezes Heart- normal rate, regular rhythm; no murmurs Abdomen- normal bowel sounds, nondistended, soft, nontender Extremities- no pretibial edema, no calf tenderness rash on BL hands: erythema improving rash on abdomen, buttocks: less erythema both not expanding no warmth/tenderness/drainage Neuro- alert, oriented x 3; no gross focal neurologic deficits Skin- warm & dry Results & Data Results & Data Vital Signs (Past 12 Hours) Vital Signs Temp Pulse Pulse Resp BP Pulse Ox O2 Del Method 02/05/23 10:34 Room Air 02/05/23 07:58 36.7 C 55 L 16 158/77 H 98 Room Air 02/05/23 07:00 91 H 02/05/23 03:42 36.6 C 86 18 160/81 H 93 Room Air 02/05/23 03:06 99 H all noted and reviewed including below
--- NOTE | 2023-02-05 12:42 | Electrocardiogram Report ---
Test Reason : Blood Pressure : / mmHG Vent. Rate : 091 BPM Atrial Rate : 091 BPM P-R Int : 134 ms QRS Dur : 086 ms QT Int : 344 ms P-R-T Axes : 076 046 073 degrees QTc Int : 423 ms Normal sinus rhythm Possible Left atrial enlargement Borderline ECG When compared with ECG of 01-FEB-2023 22:53, T wave amplitude has decreased in Anterior leads Confirmed by Rodríguez Haynes ([id number]) on 02/05/2023 12:42:06 PM Referred By: Dre Silva Confirmed By:Rodríguez Haynes
[2023-02-05] MEDS: FLUTICASONE PROPIONATE NA SPR 16 GM BTL SCH (19:23)
[2023-02-05] MEDS: CARBIDOPA/LEVODOPA 25/100MG EXT REL TAB PO SCH (19:26)
[2023-02-05] MEDS: traZODone HCL 50 MG TAB PO SCH (19:27)
[2023-02-05] MEDS: VIBEGRON 75 MG TAB PO SCH (19:29)
[2023-02-06] MEDS: ACETAMINOPHEN 500 MG TAB PO SCH ×2 (05:14→18:37)
[2023-02-06] MEDS: LEVOTHYROXINE SODIUM 75 MCG TABLET PO SCH (05:16)
[2023-02-06] MEDS: amLODIPine BESYLATE 5 MG TAB PO SCH (08:04)
[2023-02-06] MEDS: PANTOprazole 40 MG TAB PO SCH (08:04)
[2023-02-06] MEDS: lisinopril 5 MG TAB PO SCH (08:05)
[2023-02-06] MEDS: CARBIDOPA/LEVODOPA 25/100MG TAB PO SCH ×3 (08:05→21:53)
[2023-02-06] MEDS: predniSONE 20 MG TAB PO SCH (08:05)
[2023-02-06] MEDS: LORATADINE 10 MG TAB PO SCH (08:05)
[2023-02-06] MEDS: diphenhydrAMINE Capsule 25 MG CAP PO SCH ×2 (08:06→21:51)
[2023-02-06] MEDS: CHOLECALCIFEROL 1,000 UNITS 25 MCG TAB PO SCH (08:06)
[2023-02-06] MEDS: AMANTADINE HCL 100 MG CAPSULE PO SCH ×2 (08:06→21:53)
[2023-02-06] MEDS: ENOXAPARIN INJ 40 MG/0.4 ML SYR SQ SCH (08:06)
[2023-02-06] MEDS: SULFACETAMIDE SODIUM 10% OP SOLN 15 ML BTL OPB SCH ×2 (08:07→21:52)
[2023-02-06] MEDS: POLYETHYLENE (MIRALAX) 17 GM PACK PO SCH (08:07)
[2023-02-06] MEDS: KETOCONAZOLE 2% CR 15 GM TUBE EXT SCH ×2 (08:07→21:58)
[2023-02-06] MEDS: BETAMETHASONE DIP AUG (DIPROLENE) 0.05% CR 50 GM TUBE EXT SCH ×2 (08:07→21:57)
[2023-02-06] MEDS: HYDROCORTISONE 2.5% CR 30 GM TUBE EXT SCH ×2 (08:07→21:57)
--- NOTE | 2023-02-06 16:38 | Hospitalist Progress Note ---
Date of Service February 06, 2023 Assessment & Plan (1) Rash and nonspecific skin eruption: (2) KEV (acute kidney injury): (3) Parkinson disease: Plan: This is an 87-year-old female who has a significant past medical history of Parkinson's disease, hypothyroidism, lumbar spinal stenosis, osteoarthritis, urinary incontinence who presents to ED secondary to rash x2 days. Rash and nonspecific skin eruption, possible drug reaction, irritant contact dermatitis Macrobid discontinued placed on prednisone 40 mg daily, Benadryl 25 mg twice daily, loratadine daily, betamethasone cream twice daily Dermatology was consulted, drug reaction unlikely as per Dr. Garcia Ordered hydrocortisone plus ketoconazole cream twice daily Reyes catheter placed as patient's incontinence causing contact dermatitis 02/06 rash significantly improved with above regimen continue Prednisone 40mg po daily until today, then prednisone 30 mg daily x2 days, 20 mg daily x2 days, 10 mg daily x2 days then stop continue Claritin, Benadryl x2 weeks Steroid and antifungal cream times until rash resolves HTN no past history likely from steroids, stress increased Amlodipine 10 mg po daily still not at goal, added Lisinopril 5mg po daily Hydralazine PRN BP improving Continue amlodipine plus lisinopril for now May need to wean off if blood pressure improving once off prednisone Chest pain Episode noted midnight of 02/04 trop negative EKG no signs of acute ischemia Resolved with tramadol Possible reflux from prednisone? Added Protonix daily resolved KEV Baseline creatinine 1.0 BUN/creatinine 38 1.34 Resolved with IV fluids Shortness of breath From underlying Parkinson disease? CT chest: No pneumonia, no PE Echocardiogram noted consulted Pulm: recommend outpatient PFT, Sleep Study Parkinson's disease Chronic, stable Continue amantadine and carbidopa levodopa Hypothyroidism Chronic, stable Continue levothyroxine DVT ppx: SQ Lovenox Dispo: pt resides at [facility] Plan to transition to [facility] when accepted DNR/DNI plan of care discussed with patient and her daughter Eduin at the bedside in detail and at length all questions answered they are understanding, agreeable, comfortable with the plan of care Admission and Anticipated Discharge Date Admission Date: February 01, 2023 Subjective ff up for diffuse rash, possible drug reaction to Macrobid vs. Contact dermatitis, etc seen resting in chair, comfortable Smiling States she feels better overall Itching is improving Denies pain on the rash areas No fevers or chills no chest pain, dyspnea, palpitations, dizziness No other new symptoms Review of Systems Review of Systems: all noted and negative except for above Physical Exam Physical Exam: General- oriented x 3, not in distress, speaks in sentences with no effort or accessory muscle use Eyes- anicteric Neck- no JVD Lungs- clear breath sounds bilaterally, no rales/wheezes Heart- normal rate, regular rhythm; no murmurs Abdomen- normal bowel sounds, nondistended, soft, no tenderness Extremities- no pretibial edema, no calf tenderness rash on BL hands: Erythema mostly resolved rash on labial area, inguinal area, abdomen, buttocks: less erythema-75% better, no signs of cellulitis both not expanding no warmth/tenderness/drainage Neuro- alert, oriented x 2; no gross focal neurologic deficits Skin- warm & dry Results & Data Results & Data Vital Signs (Past 12 Hours) Vital Signs Temp Pulse Pulse Resp BP Pulse Ox O2 Del Method 02/06/23 15:19 36.5 C 87 20 149/79 H 95 Room Air 02/06/23 12:00 36.3 C L 87 20 145/76 H 97 Room Air 02/06/23 11:58 36.6 C 87 18 137/76 96 Room Air 02/06/23 10:00 Room Air 02/06/23 08:07 36.8 C 82 20 146/76 H 94 Room Air 02/06/23 07:28 74 02/06/23 07:14 36.5 C 82 18 147/75 H 94 Room Air all noted and reviewed including below
[2023-02-06] MEDS: traZODone HCL 50 MG TAB PO SCH (21:52)
[2023-02-06] MEDS: FLUTICASONE PROPIONATE NA SPR 16 GM BTL SCH (21:52)
[2023-02-06] MEDS: VIBEGRON 75 MG TAB PO SCH (21:53)
[2023-02-06] MEDS: CARBIDOPA/LEVODOPA 25/100MG EXT REL TAB PO SCH (21:56)
[2023-02-07] MEDS: ACETAMINOPHEN 500 MG TAB PO SCH (06:43)
[2023-02-07] MEDS: LEVOTHYROXINE SODIUM 75 MCG TABLET PO SCH (06:43)
[2023-02-07] MEDS: LORATADINE 10 MG TAB PO SCH (08:16)
[2023-02-07] MEDS: CARBIDOPA/LEVODOPA 25/100MG TAB PO SCH ×2 (08:17→14:00)
[2023-02-07] MEDS: AMANTADINE HCL 100 MG CAPSULE PO SCH (08:17)
[2023-02-07] MEDS: POLYETHYLENE (MIRALAX) 17 GM PACK PO SCH (08:17)
[2023-02-07] MEDS: diphenhydrAMINE Capsule 25 MG CAP PO SCH (08:17)
[2023-02-07] MEDS: amLODIPine BESYLATE 5 MG TAB PO SCH (08:18)
[2023-02-07] MEDS: predniSONE 20 MG TAB PO SCH (08:18)
[2023-02-07] MEDS: PANTOprazole 40 MG TAB PO SCH (08:18)
[2023-02-07] MEDS: lisinopril 5 MG TAB PO SCH (08:18)
[2023-02-07] MEDS: BETAMETHASONE DIP AUG (DIPROLENE) 0.05% CR 50 GM TUBE EXT SCH (08:19)
[2023-02-07] MEDS: SULFACETAMIDE SODIUM 10% OP SOLN 15 ML BTL OPB SCH (08:19)
[2023-02-07] MEDS: HYDROCORTISONE 2.5% CR 30 GM TUBE EXT SCH (08:19)
[2023-02-07] MEDS: ENOXAPARIN INJ 40 MG/0.4 ML SYR SQ SCH (08:19)
[2023-02-07] MEDS: CHOLECALCIFEROL 1,000 UNITS 25 MCG TAB PO SCH (08:19)
--- NOTE | 2023-02-07 09:52 | Hospitalist Progress Note ---
Date of Service February 07, 2023 Assessment & Plan (1) Rash and nonspecific skin eruption: Plan: This is an 87-year-old female who has a significant past medical history of Parkinson's disease, hypothyroidism, lumbar spinal stenosis, osteoarthritis, urinary incontinence who presents to ED secondary to rash x2 days. Rash and nonspecific skin eruption possible drug reaction likely secondary to Macrobid irritant contact dermatitis in the setting of urinary incontinence Macrobid discontinued placed on prednisone 40 mg daily, Benadryl 25 mg twice daily, loratadine daily, betamethasone cream twice daily Middleware Solutions Architect Dr. Garcia was consulted, drug reaction unlikely as per Dr. Garcia Ordered hydrocortisone plus ketoconazole cream twice daily Reyes catheter placed as patient's incontinence causing contact dermatitis 02/07 rash significantly improved with above regimen continue Prednisone taper with prednisone 30 mg daily x2 days, 20 mg daily x2 days, 10 mg daily x2 days then stop continue Claritin, Benadryl x2 weeks Steroid and antifungal cream times until rash resolves HTN no past history likely from steroids, stress increased Amlodipine 10 mg po daily still not at goal, added Lisinopril 5mg po daily Hydralazine PRN BP improved Continue amlodipine plus lisinopril for now May need to wean off if blood pressure improving once off prednisone Chest pain Episode noted midnight of 02/04 trop negative EKG no signs of acute ischemia Resolved with tramadol Possible reflux from prednisone? Added Protonix daily resolved Acute Kidney Injury Baseline creatinine 1.0 BUN/creatinine 38 1.34 Resolved with IV fluids Shortness of breath From underlying Parkinson disease? CT chest: No pneumonia, no PE Echocardiogram: EF >70% mild concentric LVH estimated pulmonary pressure 39mmHg consulted Service Liaison Representative Dr. Valdes: no clear etiology of shortness of breath noted, O2 saturation >90%; possible Parkinsonism with diaphragm involvement? recommend outpatient PFT, Sleep Study Parkinson's disease Chronic, stable Continue amantadine and carbidopa levodopa Hypothyroidism Chronic, stable Continue levothyroxine DVT ppx:SQ Lovenox Dispo: pt resides at [facility] transition to [facility] today Code Status DNR/DNI Admission and Anticipated Discharge Date Admission Date: February 01, 2023 Subjective ff up for generalized rash, drug reaction, contact dermatitis, etc seen resting in bed, comfortable in good spirits states she feels fine overall itching significantly better denies pain on the affected areas no fever/chills, nausea no chest pain, dyspnea, palpitations, dizziness, headache no other new symptoms states she is ready for discharge to acute rehab today Review of Systems Review of Systems: all noted and negative except for above Physical Exam Physical Exam: General- oriented x 3, not in distress, speaks in sentences with no effort or accessory muscle use Eyes- anicteric Neck- no JVD Lungs- clear breath sounds bilaterally, no rales/wheezes Heart- normal rate, regular rhythm; no murmurs Abdomen- normal bowel sounds, nondistended, soft, nontender rash on BL hands: Erythema resolved rash on labial area, inguinal area, abdomen, buttocks: less erythema-75% better, no signs of cellulitis both not expanding no warmth/tenderness/drainage Extremities- no pretibial edema, no calf tenderness Neuro- alert, oriented x 3; no gross focal neurologic deficits Skin- warm & dry Results & Data Results & Data Vital Signs (Past 12 Hours) Vital Signs Temp Pulse Pulse Resp BP Pulse Ox O2 Del Method 02/07/23 07:00 80 02/07/23 07:15 36.5 C 83 18 133/78 93 Room Air 02/06/23 22:25 85 02/07/23 06:18 Room Air 02/07/23 03:43 36.5 C 84 16 150/80 H 93 Room Air 02/06/23 22:53 36.9 C 85 18 148/81 H 92 Room Air all noted and reviewed including below
--- NOTE | 2023-02-07 10:15 | Discharge Summary ---
Discharge Summary Date of Service February 07, 2023 Notes For Next Care Provider Medication Changes From Visit PER MEDICAL RECONCILIATION FORM Admission HPI Per Admitting Provider This is an 87-year-old female who has a significant past medical history of Parkinson's disease, hypothyroidism, lumbar spinal stenosis, osteoarthritis, urinary incontinence who presents to ED secondary to rash x2 days. Patient's daughter is at bedside who also helps elicit history. She currently resides at [facility] which is a personal care facility. At baseline she ambulates with a walker. Of significance patient recently diagnosed with a urinary tract infection and started on oral Macrobid. Macrobid was started on 01/24. 2 days ago she was noted to have a rash in her vaginal area and staff felt like this was a yeast infection. She was started on nystatin cream as well as oral fluconazole. So far she has had 2 doses of oral fluconazole. Her rash has been getting significantly worse extending to the buttock region, proximal abdomen and bilateral wrist. Rash is very painful as well as very itchy. She is never had anything like this before. She does have frequent urinary tract infections but is never been treated with Macrobid before. Typically she is treated with Keflex. Patient also admits to chronic shortness of breath that is been present for the last 6 months. This occurs with exertion especially physical therapy. Overall she is a poor appetite at baseline and per daughter she is a very poor, "water drinker." She drinks a lot of sugary beverages but her oral intake at baseline is minimal. Admission Exam Per Admitting Provider Constitutional: Elderly female with masked facies, parkinsonian features, WD/WN, vitals as above, NAD, sitting up in bed, pleasant, soft-spoken Head: Normocephalic, Atraumatic Eyes: PERRL, conjunctivae normal, anicteric sclerae ENMT: external ear and nose normal, oropharynx normal dry membranes Neck: trachea midline, no thyromegaly normal visual inspection Respiratory: normal respiratory effort, lungs clear to auscultation, no wheeze, rales, rhonchi. Normal insp/exp effort, no accessory muscle use Cardiovascular: RRR, no murmur, no edema Vessels: no JVD or carotid bruit Chest: normal inspection of chest Abdomen: normal bowel sounds, soft, nontender, no hepatosplenomegaly Musculoskeletal: no cyanosis or clubbing, extremities motor strength 5/5 Skin: Positive rash to vulvovaginal area, gluteal fold, buttocks and sacrum, erythematous maculopapular rash to bilateral wrists, warm and dry normal turgor Neurologic: PERRL, EOMI, accommodation nl, no face palsy, no dysarthria CN's II-XI intact bilaterally and moves all extremities Psychiatric: A+Ox3, euthymic affect Lymphatic: no cervical or axillary lymphadenopathy : Diffuse erythematous rash in her vulvovaginal region, inguinal folds extending to her sacral and gluteal crease with outlying satellite lesions. The diffuse erythematous rash also extends up the abdomen to the umbilicus with satellite lesions. Principal Dx & Hospital Course #1 = Principal Diagnosis (1) Rash and nonspecific skin eruption: This is an 87-year-old female who has a significant past medical history of Parkinson's disease, hypothyroidism, lumbar spinal stenosis, osteoarthritis, urinary incontinence who presents to ED secondary to rash x2 days. Rash and nonspecific skin eruption possible drug reaction likely secondary to Macrobid irritant contact dermatitis in the setting of urinary incontinence Macrobid discontinued placed on prednisone 40 mg daily, Benadryl 25 mg twice daily, loratadine daily, betamethasone cream twice daily Joint [employer]ner Dr. Garcia was consulted, drug reaction unlikely as per Dr. Garcia Ordered hydrocortisone plus ketoconazole cream twice daily Swain catheter placed as patient's incontinence causing contact dermatitis 02/07 rash, pruritus significantly improved with above regimen continue Prednisone taper with prednisone 30 mg daily x2 days, 20 mg daily x2 days, 10 mg daily x2 days then stop continue Claritin, Benadryl x2 weeks Steroid and antifungal cream times until rash resolves Hypertension no past history likely from steroids, stress increased Amlodipine 10 mg po daily still not at goal, added Lisinopril 5mg po daily Hydralazine PRN BP improved Continue amlodipine plus lisinopril for now May need to wean off if blood pressure improving once off prednisone Chest pain Episode noted midnight of 02/04 trop negative EKG no signs of acute ischemia Resolved with tramadol Possible reflux from prednisone? Added Protonix daily while on Prednisone resolved Acute Kidney Injury Baseline creatinine 1.0 BUN/creatinine 38 1.34 Resolved with IV fluids Shortness of breath From underlying Parkinson disease? CT chest: No pneumonia, no PE Echocardiogram: EF >70% mild concentric LVH estimated pulmonary pressure 39mmHg consulted [employer] Floor[employer] Dr. Valdes: no clear etiology of shortness of breath noted, O2 saturation >90%; possible Parkinsonism with diaphragm involvement? recommend outpatient PFT, Sleep Study Abormal CT findings There is a 4 mm nodule in the right upper lobe Prominent left adnexal mass may represent a prominent ovary. If there is clinical concern, transvaginal ultrasound can be performed. Further work up, management, and ff up as outpatient Please refer to full report in the Ordered Studies section above Parkinson's disease Chronic, stable Continue amantadine and carbidopa levodopa Hypothyroidism Chronic, stable Continue levothyroxine DVT ppx:SQ Lovenox Dispo: pt resides at [facility] transition to [facility] today Code Status DNR/DNI Discharge Exam General- oriented x 3, not in distress, speaks in sentences with no effort or accessory muscle use Eyes- anicteric Neck- no JVD Lungs- clear breath sounds bilaterally, no rales/wheezes Heart- normal rate, regular rhythm; no murmurs Abdomen- normal bowel sounds, nondistended, soft, nontender rash on BL hands: Erythema resolved rash on labial area, inguinal area, abdomen, buttocks: less erythema-75% better, no signs of cellulitis both not expanding no warmth/tenderness/drainage Extremities- no pretibial edema, no calf tenderness Neuro- alert, oriented x 3; no gross focal neurologic deficits Skin- warm & dry Updated Medication List Medication Instructions Recorded Confirmed Type Ultimate Bone Support 1 tab PO QAM 02/01/23 02/01/23 History acetaminophen 500 mg tablet 1,000 mg PO Q12H 02/01/23 02/01/23 History amantadine HCl 100 mg capsule 100 mg PO BID 02/01/23 02/01/23 History carbidopa 25 mg-levodopa 100 mg 2 tab PO TID 02/01/23 02/01/23 History tablet carbidopa ER 25 mg-levodopa 100 mg 1 tab PO HS 02/01/23 02/01/23 History tablet,extended release celecoxib 200 mg capsule 200 mg PO QAM 02/01/23 02/01/23 History cholecalciferol (vitamin D3) 25 50 mcg PO QAM 02/01/23 02/01/23 History mcg (1,000 unit) capsule (Vitamin D3) cranberry concentrate-ascorbic 1 cap PO QAM 02/01/23 02/01/23 History acid 140 mg-100 mg capsule (Cranberry Plus Vitamin C) diclofenac sodium 1 % topical gel 2 g topical QID PRN Moderate Pain 02/01/23 02/01/23 History (Scale Score 5-6) fluconazole 150 mg tablet 150 mg PO Q72H 02/01/23 02/01/23 History fluticasone propionate 50 2 spray intranasal HS 02/01/23 02/01/23 History mcg/actuation nasal spray,suspension levothyroxine 75 mcg tablet 75 mcg PO QAM 02/01/23 02/01/23 History nitrofurantoin 100 mg PO BID 02/01/23 02/01/23 History monohydrate/macrocrystals 100 mg capsule nystatin-triamcinolone topical 1 applic topical TID 02/01/23 02/01/23 History cream polyethylene glycol 3350 17 15 g PO DAILY 02/01/23 02/01/23 History gram/dose oral powder sulfacetamide sodium 10 % eye drops 1 drp ophthalmic (eye) BID 02/01/23 02/01/23 History trazodone 50 mg tablet 75 mg PO HS 02/01/23 02/01/23 History vibegron 75 mg tablet (Gemtesa) 75 mg PO HS 02/01/23 02/01/23 History amlodipine 5 mg tablet (Norvasc) 10 mg PO DAILY 30 days #60 tabs 02/07/23 Rx betamethasone, augmented 0.05 % 1 applic EXT BID 10 days #50 grams 02/07/23 Rx topical cream diphenhydramine HCl 25 mg capsule 25 mg PO BID 7 days #14 caps 02/07/23 Rx (Benadryl) diphenhydramine-zinc acetate 2 1 applic EXT QID PRN itching 10 02/07/23 Rx %-0.1 % topical cream (Anti-Itch days #35 grams (diphenhydramine) with Zinc) hydrocortisone 2.5 % topical cream 1 applic EXT BID 10 days #30 grams 02/07/23 Rx ketoconazole 2 % topical cream 1 applic EXT BID 10 days #60 grams 02/07/23 Rx lisinopril 5 mg tablet (Zestril) 5 mg PO QAM 30 days #30 tabs 02/07/23 Rx loratadine 10 mg tablet (Wal-itin) 10 mg PO QAM 14 days #14 tabs 02/07/23 Rx pantoprazole 40 mg tablet,delayed 40 mg PO QAM 7 days #7 tabs 02/07/23 Rx release prednisone 10 mg tablet 10 mg PO DAILY #12 tabs 02/07/23 Rx Hospital Stay Data Consultations 02/01/23 19:37 ED Decision to Admit Stat 02/01/23 20:55 Consult Dermatology Routine 02/03/23 09:41 Consult Pulmonology Routine Diagnostic Imagining Performed Laboratory Results WBC 12.71 K/ul (4.8-10.8) H 02/05/23 06:42 RBC 4.41 M/uL (4.20-5.40) 02/05/23 06:42 Hgb 14.0 g/dl (12.0-16.0) 02/05/23 06:42 Hct 39.6 % (37.0-47.0) 02/05/23 06:42 MCV 89.8 fL (80.0-100.0) 02/05/23 06:42 MCH 31.7 pg (25.0-34.0) 02/05/23 06:42 MCHC 35.4 g/dL (32.0-36.0) 02/05/23 06:42 RDW Std Deviation 41.7 fL (36.4-46.3) 02/05/23 06:42 RDW Coeff of Wilber 12.5 % (11.5-14.5) 02/05/23 06:42 Plt Count 273 K/uL (130-400) 02/05/23 06:42 MPV 9.0 fL (9.4-12.4) L 02/05/23 06:42 Immature Gran % (Auto) 0.8 % 02/02/23 07:06 Neut % (Auto) 81.3 % 02/02/23 07:06 Lymph % (Auto) 10.2 % 02/02/23 07:06 Granite % (Auto) 1.4 % 02/02/23 07:06 Eos % (Auto) 6.1 % 02/02/23 07:06 Baso % (Auto) 0.2 % 02/02/23 07:06 Neut # (Auto) 7.84 K/uL (1.40-6.50) H 02/02/23 07:06 Lymph # (Auto) 0.99 K/uL (1.20-3.40) L 02/02/23 07:06 Granite # (Auto) 0.14 K/uL (0.11-0.59) 02/02/23 07:06 Eos # (Auto) 0.59 K/uL (0.00-0.50) H 02/02/23 07:06 Baso # (Auto) 0.02 K/uL (0.00-0.20) 02/02/23 07:06 Immature Gran # (Auto) 0.08 K/uL (0.01-0.20) 02/02/23 07:06 ESR 19 mm/hr (0-30) 02/01/23 14:18 APTT 25.9 Seconds (21.0-31.0) 02/01/23 23:15 PTT Ratio 0.9 02/01/23 23:15 D-Dimer 5110 ug/L FEU (0-500) H* 02/01/23 23:15 Sodium 138 mmol/L (136-145) 02/02/23 07:06 Potassium 4.6 mmol/L (3.5-5.1) 02/02/23 07:06 Chloride 109 mmol/L (98-107) H 02/02/23 07:06 Carbon Dioxide 22 mmol/L (21-32) 02/02/23 07:06 Anion Gap 7 (3-11) 02/02/23 07:06 BUN 31 mg/dl (6-23) H 02/02/23 07:06 Creatinine 1.03 mg/dl (0.6-1.2) 02/05/23 06:42 Est Cr Clr Drug Dosing 42.2 ml/min 02/05/23 06:42 Est GFR ( Amer) 57.4 ml/min 02/05/23 06:42 Est GFR (Non-Af Amer) 49.5 ml/min 02/05/23 06:42 BUN/Creatinine Ratio 36.5 (10-20) H 02/02/23 07:06 Glucose 138 mg/dl (70-99(Fasting)) H 02/02/23 07:06 Estimat Average Glucose 117 mg/dl 02/03/23 09:54 Hemoglobin A1c 5.7 % (4.5-5.6) H 02/03/23 09:54 Lactate 1.2 mmol/L (0.4-2.0) 02/01/23 21:52 Calcium 8.5 mg/dl (8.6-10.3) L 02/02/23 07:06 Magnesium 2.2 mg/dl (1.7-2.4) 02/01/23 14:18 Total Bilirubin 0.4 mg/dl (0.2-1.0) 02/02/23 07:06 AST 10 U/L (13-39) L 02/02/23 07:06 ALT 9 U/L (7-52) 02/02/23 07:06 Alkaline Phosphatase 72 U/L (34-104) 02/02/23 07:06 Troponin I High Sens 9.2 pg/ml (0-14) 02/05/23 06:42 C-Reactive Protein 2.22 mg/dl (0-0.5) H 02/01/23 14:18 Total Protein 6.2 gm/dl (6.0-8.3) 02/02/23 07:06 Albumin 3.8 gm/dl (3.4-5.0) 02/02/23 07:06 Globulin 2.4 gm/dl (2.5-4.0) L 02/02/23 07:06 Albumin/Globulin Ratio 1.6 (0.9-2) 02/02/23 07:06 Procalcitonin 0.13 ng/ml (0-0.5) 02/01/23 14:19 Urine Color Dark Yellow 02/01/23 Unknown Urine Appearance Cloudy (Clear) A 02/01/23 Unknown Urine pH 5.0 (4.5-7.5) 02/01/23 Unknown Ur Specific [place] 1.035 (1.000-1.030) H 02/01/23 Unknown Urine Protein Negative (Negative) 02/01/23 Unknown Urine Glucose (UA) Negative (Negative) 02/01/23 Unknown Urine Ketones Trace (Negative) H 02/01/23 Unknown Urine Blood Negative (Negative) 02/01/23 Unknown Urine Nitrite Negative (Negative) 02/01/23 Unknown Urine Bilirubin Negative (Negative) 02/01/23 Unknown Urine Urobilinogen Negative (Negative) 02/01/23 Unknown Ur Leukocyte Esterase Trace (Negative) H 02/01/23 Unknown Urine WBC (Auto) 10-30 /hpf (0-5) H 02/01/23 Unknown Urine RBC (Auto) 0-4 /hpf (0-4) 02/01/23 Unknown U Hyaline Cast (Auto) 1-5 /lpf (0-5) 02/01/23 Unknown U Epithel Cells (Auto) >30 /lpf (0-5) H 02/01/23 Unknown Urine Bacteria (Auto) Negative (Negative) 02/01/23 Unknown Urine Yeast Not Reportable 02/01/23 Unknown Nasal Screen MRSA (PCR) Negative (Negative) 02/02/23 06:40 Impressions Chest X-Ray 02/01/23 13:57 SINGLE VIEW CHEST CLINICAL HISTORY: Dyspnea. FINDINGS: An AP, portable, upright chest radiograph is obtained. No prior studies are available for comparison at the time of dictation. The cardiomediastinal silhouette is top normal for projection. The lungs and pleural spaces are clear. No pneumothorax is seen. The skeletal structures are osteopenic. There is chronic posttraumatic deformity of the distal right clavicle. IMPRESSION: No active disease in the chest. ACT 112: Negative or not required by law. Electronically signed by: Darion Menard M.D. 02/01/2023 4:02 PM Chest CTA 02/02/23 00:38 CT angio chest PE protocol CLINICAL HISTORY: sob TECHNIQUE: Multidetector row helical CT of the chest was performed with angiographic protocol. Coronal and sagittal reformations were obtained. Coronal and sagittal MIPS were obtained from the axial data set and were submitted for review. Automated dose lowering techniques and/or adjustment according to patient size were utilized for this exam. Comparison: Comparison is made to chest radiograph 02/01/2023 FINDINGS: Lungs and pleura: Atelectasis versus scarring is seen in the dependent portions of the lungs. There is a 4 mm nodule in the right upper lobe (series 4 image 124). Heart and pericardium: Heart size is normal. No pericardial effusion. Vessels: No evidence of pulmonary embolism. Mediastinum and marcelo: Unremarkable. Chest wall and lower neck: Unremarkable. Abdomen: For findings below the diaphragm, please refer to CT of the abdomen dated the same. A hiatal hernia is seen. Bones: Degenerative changes in the thoracic spine. IMPRESSION: 1. No acute abnormality and in particular no evidence of pulmonary embolus. 2. Tiny pulmonary nodule as above ACT 112: Negative or not required by law. Electronically signed by: Serge Alston M.D. 02/02/2023 6:48 AM Abdomen/Pelvis CT 02/02/23 00:39 CT abd pelvis IV con only CLINICAL HISTORY: abd pain TECHNIQUE: Helical axial images of the abdomen and pelvis were obtained and displayed. Automated dose lowering techniques and/or adjustment according to patient size were utilized for this exam. This exam was performed with intravenous contrast. CT DOSE: 2160.87 mGy.cm COMPARISON: None available at the time of this dictation. FINDINGS: Lower chest: Bibasilar atelectasis versus scarring is seen. Liver: Unremarkable. No focal lesions are seen. Gallbladder and biliary tree: Patient is status post cholecystectomy. No intra- or extrahepatic biliary ductal dilation. Pancreas: Unremarkable, no focal lesions. Spleen: Unremarkable. Adrenals: Unremarkable. Kidneys and ureters: Multiple cysts measuring up to 41 mm. Bladder: Unremarkable. Reproductive organs: Prominent left adnexal mass measures 43 x 30 mm, likely a left ovary. Bowel: A hiatal hernia is seen. Lymph nodes Retroperitoneal: Unremarkable. Pelvic: Subcentimeter lymph nodes are noted. Mesenteric: Unremarkable. Peritoneum: Normal. Vessels: Atherosclerotic calcifications are seen. IVC filter is noted. Abdominal wall: A fat-containing umbilical hernia is seen. Bones: Degenerative changes in the visualized spine. IMPRESSION: 1. Prominent left adnexal mass may represent a prominent ovary. If there is clinical concern, transvaginal ultrasound can be performed. 2. Otherwise no acute abnormalities are seen. 3. Renal cysts. No evidence of prominent cystitis or pyelonephritis in this patient with UTI. ACT 112: Negative or not required by law. Electronically signed by: Serge Alston M.D. 02/02/2023 6:45 AM 02/02/23 00:38 CT angio chest PE protocol Stat 02/02/23 00:39 CT abd pelvis IV con only Urgent Pending Results Patient Have Any Pending Studies at Discharge: No Discharge Instructions Given to Patient (Per Discharging Provider) MONITOR BLOOD PRESSURE. MAINTAIN SWAIN CATHETER FOR NOW AT LEAST UNTIL DERMATITIS RESOLVES. PLEASE REFER TO ACCOMPANYING HOSPITAL DISCHARGE SUMMARY. Total Time Total Time Spent Total Time Spent (In Minutes): >30 minutes
[2023-02-07] MEDS: KETOCONAZOLE 2% CR 15 GM TUBE EXT SCH (10:34)
[2023-02-08] MEDS ORDERED: predniSONE 10 MG TABLET PO SCH (09:00)
== END 2023-02-07 18:05 | DRG 607 ==
LOC: ED 13:20 → 2N 20:55 → SUATTDRO 20:55 → 2N 23:18